=== PATIENT | female | born 1935 | race Caucasian/White ===

== ENCOUNTER 2016-04-06 20:09 | Inpatient (IN) | payer MEDICARE, OTHER ==
[~2016-04-06] VITALS: Ht 160 cm; Wt 88.4 kg
[~2016-04-06 20:09] MED LIST: ASPI-479 PO; CIPR-226 PO; DOXE10CA PO; IBUP200C PO; INSU100C7 SQ; INSU100I23 SQ; LCT30U PO; METO25TA60 PO; MTC5T; NITR100C PO; NITR100C3 PO; OMEP20CA12 PO; ONDAN4ODT PO; OXYB15TA4 PO; RANI300C PO; SIMV40TA PO; TOLT4CAP13 PO; TRAM-25 PO; TRM50T PO; [UNRECOGNIZED DRUG - OTHER]
--- OUTSIDE RECORDS SUMMARY | 2016-04-06 20:14 | XMS REPORT | Continuity of Care Document ---
Author Author [facility] Organization [facility] Address Unknown Phone Unavailable Care Team Providers Care Lay Out Former Name Role Phone Kahlil Oseguera MD PCP [phone] Insurance Providers Payer Name Policy Number Subscriber Name Relationship Medicare A And B [id number] Sathya Pascalia A 18 Self / Same As Patient Other1 [id number] Sathya Pascalia A 18 Self / Same As Patient Chief Complaint and Reason for Visit Chief Complaint Pain Reason for Visit Leg pain, left Foot pain, right Problems Medical Problems Problem Onset Date Status Nausea 02/19/2012 Active Gastroenteritis 02/22/2012 Active Chest pain 02/03/2013 Active Injury of finger Unknown Active Leg pain, left ~10/11/2014 Active Foot pain, right ~10/11/2014 Active Medications Medication Dose Route Sig Days/Qty Instructions Order Date Discontinued Date Status Nitrofurantoin Macrocrystal 100 Mg ORAL TWICE A DAY 02/19/12 Discontinued Simvastatin 40 Mg ORAL BEDTIME 02/19/12 10/11/14 Discontinued Doxepin Hcl 10 Mg ORAL TWICE A DAY 02/19/12 02/24/12 Discontinued Metoclopramide Hcl DAILY 02/19/12 02/24/12 Discontinued Omeprazole 20 Mg ORAL TWICE DAILY BEFORE MEALS 02/19/12 10/11/14 Discontinued Aspirin 81 Mg ORAL DAILY 02/19/12 Active Oxybutynin Chloride 15 Mg ORAL DAILY 02/19/12 02/04/13 Discontinued Ondansetron Hcl 4 Mg ORAL EVERY 8HRS PRN 9 Qty 02/19/12 02/24/12 Discontinued Ondansetron Hcl 4 Mg ORAL EVERY 8HRS PRN 02/24/12 10/11/14 Discontinued Lactulose 15 Ml ORAL TWICE A DAY PRN 02/24/12 10/11/14 Discontinued Insulin Lispro 12 Unit SQ DAILY@0800 02/24/12 Active Insulin Lispro 10 Unit SQ DAILY@1200 02/24/12 Active Insulin Glargine,Hum.rec.anlog 24 Unit SQ BEDTIME 02/24/12 Active Insulin Lispro 1 Dose SQ NEEDED 02/24/12 Active Ciprofloxacin Hcl 250 Mg ORAL TWICE A DAY 2 Days 02/04/13 10/11/14 Discontinued Insulin Lispro 12 Unit SQ DAILY@1800 02/04/13 Active Tramadol Hcl 50 Mg ORAL EVERY 8HRS 20 Qty 06/05/13 10/11/14 Discontinued Metoprolol Tartrate 25 Mg ORAL DAILY 10/11/14 Active Ranitidine Hcl 300 Mg ORAL DAILY 10/11/14 Active Tolterodine Tartrate 4 Mg ORAL DAILY 10/11/14 Active [ginko bilboa] DAILY 10/11/14 Active Ibuprofen 200 Mg ORAL DAILY 10/11/14 Active Ibuprofen 200 Mg ORAL NEEDED 10/11/14 Active Social History No social history. Hospital Discharge Instructions No hospital discharge instructions. Plan of Care Discharge Date 10/11/14 5:30am Disposition 01 HOME OR SELF-CARE Condition at Discharge Stable Instructions/Education Provided Peripheral Neuropathy (ED) Prescriptions See Medications Section Referrals Kahlil Oseguera MD Additional Instructions/Education Hydrocodone 5's as previously Rx'd, as needed for severe pain. Advance activity as tolerated. Follow up with PCP this next week. Some of your test results may not be complete prior to your leaving the Emergency Department. The Emergency Department is not authorized to give test results over the phone. Please contact the doctor's office listed in this packet of information for your final results. Follow up with your primary care physician or return to the Emergency Department for worsening or worrisome symptoms. * Emergency Department phone number: [phone], x [phone]* MEDICAL RECORD If you need copies of your X-rays, call [phone]. If you need copies of your medical record, including lab results, a signed authorization for release of records will be required. A telephone call for release of Health Information is not allowed. BILLING Billing can sometimes be confusing and frustrating. To help avoid confusion in the future, please take a moment to acquaint yourself with the billing parties for services. SERVICE BILLING LIBERTARIAN Emergency Room Services [facility] Physician Services [facility] X-rays [place] [facility] Patients will receive bills for services from the appropriate provider. If you have any questions about your [facility] bill, our staff will be happy to assist you. Please call [phone], and ask for the billing department. THANK YOU for choosing [facility] as your emergency care provider! Functional Status No functional status results. Allergies, Adverse Reactions, Alerts Allergen Type Severity Reaction Status Last Updated Opioids - Morphine Analogues Allergy Unknown Active 10/11/14 Penicillin Allergy Unknown Active 10/11/14 Macrolide Antibiotics Allergy Unknown Active 10/11/14 Sulfa (Sulfonamide Antibiotics) Allergy Unknown Active 10/11/14 Codeine Allergy Unknown Active 10/11/14 Erythromycin base Allergy Unknown Active 10/11/14 Immunizations No immunization records. Vital Signs Acute Vital Signs Vital Response Date/Time Temperature (Fahrenheit) 97.2 Pulse 66 bpm Respirations 20 Height 5 ft 3 in Weight 200 lb Body Mass Index 35.0 kg/m^2 Results Test Source Date Result Interp. Ref. Range Comments Activated Partial Thromboplast Time February 03, 2013 1:10pm 22.4 SEC L 25.0-39.0 Alanine Aminotransferase (ALT/SGPT) April 02, 2014 2:55pm 21 U/L L 30 -65 Albumin April 02, 2014 2:55pm 3.8 G/DL N 3.4-5.0 Albumin/Globulin Ratio April 02, 2014 2:55pm 1.225 N 1.1-1.8 Alkaline Phosphatase April 02, 2014 2:55pm 48 U/L N 38-126 Amylase Level February 22, 2012 11:02am < 30 U/L 25-115 Collected by nurse? N Anion Gap April 02, 2014 2:55pm 15.6 MEQ/L H 3-15 Aspartate Amino Transf (AST/SGOT) April 02, 2014 2:55pm 19 U/L N 15- 37 BUN/Creatinine Ratio April 02, 2014 2:55pm 32 H 10-20 Basophils # (Auto) February 03, 2013 1:10pm 0.2 10^3/uL Basophils (%) (Auto) February 03, 2013 1:10pm 2 % N 0-2 Blood Urea Nitrogen April 02, 2014 2:55pm 21 MG/DL H 7-18 Calcium Level April 02, 2014 2:55pm 10.0 MG/DL N 8.8-10.8 Calcium/Ionized Calcium Ratio April 02, 2014 2:55pm 4.5 mg/dL N 3.8- 4.6 Calculated Osmolality April 02, 2014 2:55pm 279 MOSM/L L 280-300 Carbon Dioxide Level April 02, 2014 2:55pm 26 MMOL/L N 22-29 Chloride Level April 02, 2014 2:55pm 104 mmol/L N 98-108 Cholesterol Level April 02, 2014 2:55pm 260 mg/dL H 50-200 Cholesterol Risk Factor April 02, 2014 2:55pm 4.9 N 0.0-5.0 Creatine Kinase MB February 03, 2013 1:10pm 0.3 NG/ML N 0.0-6.0 Creatinine April 02, 2014 2:55pm 0.66 mg/dL N 0.6-1.2 Eosinophils # (Auto) February 03, 2013 1:10pm 0.4 10^3/uL Eosinophils (%) (Auto) February 03, 2013 1:10pm 4 % N 0-4 Estimat Glomerular Filtration Rate April 02, 2014 2:55pm 104.8 Estimated GFR (Non- April 02, 2014 2:55pm 86.6 Glucose Level April 02, 2014 2:55pm 176 mg/dL DH 70-110 HDL Cholesterol April 02, 2014 2:55pm 53 mg/dL N 40-60 HDL Triglycerides April 02, 2014 2:55pm 310 mg/dL H 10-150 Hematocrit April 02, 2014 2:55pm 44.90 % N 35.00-45.00 Hemoglobin April 02, 2014 2:55pm 15.3 g/dL N 12.0-15.5 Hemoglobin A1c April 02, 2014 2:55pm 9.5 % H 4.0-6.0 LDL Cholesterol (Measured) April 02, 2014 2:55pm 145 mg/dL H 50-130 Lipase February 22, 2012 11:02am 23 U/L N 23-300 Collected by nurse? N Lymphocytes # (Auto) February 03, 2013 1:10pm 3.7 X 10^3 Lymphocytes (%) (Auto) February 03, 2013 1:10pm 36 % N 20-46 Magnesium Level February 03, 2013 1:10pm 2.0 MG/DL N 1.6-2.3 Mean Corpuscular Hemoglobin April 02, 2014 2:55pm 31.4 PG N 26.0- 34.0 Mean Corpuscular Hemoglobin Concent April 02, 2014 2:55pm 34.1 g/dL N 31.0-37.0 Mean Corpuscular Volume April 02, 2014 2:55pm 92 FL N 80-100 Mean Platelet Volume April 02, 2014 2:55pm 12.0 FL H 6.0-9.5 Monocytes # (Auto) February 03, 2013 1:10pm 1.0 X 10^3 Monocytes (%) (Auto) February 03, 2013 1:10pm 9 % N 3-11 Neutrophils # (Auto) February 03, 2013 1:10pm 5.1 X 10^3 Neutrophils (%) (Auto) February 03, 2013 1:10pm 49 % L 51-67 Platelet Count April 02, 2014 2:55pm 241 10^3uL N 150-450 Potassium Level April 02, 2014 2:55pm 4.6 mmol/L N 3.5-5.1 Prothromb Time International Ratio February 03, 2013 1:10pm 0.8 N 0.8- 1.4 Prothrombin Time February 03, 2013 1:10pm 11.8 SEC L 12.3-14.4 Red Blood Count April 02, 2014 2:55pm 4.87 10^6uL N 4.00-5.00 Red Cell Distribution Width April 02, 2014 2:55pm 14.2 % N 11.8-15.6 Sodium Level April 02, 2014 2:55pm 140 MMOL/L N 135-150 Thyroid Stimulating Hormone (TSH) April 02, 2014 2:55pm 2.69 UIU/ML DN 0.46-4.68 Total Bilirubin April 02, 2014 2:55pm 0.2 MG/DL N 0.1-1.0 Total Creatine Kinase February 03, 2013 1:10pm 62 U/L DN 30-135 Total Protein April 02, 2014 2:55pm 6.9 G/DL N 6.4-8.5 Troponin I February 04, 2013 6:00am < 0.012 ng/mL 0.010-0.080 Collected by nurse? N Urine Bacteria February 03, 2013 2:10pm 3+ /HPF H Urine collection method Clean Catch Urine Bilirubin April 02, 2014 2:55pm Negative Negative Urine Blood April 02, 2014 2:55pm Negative Negative Urine Clarity April 02, 2014 2:55pm Slightly cloudy Urine Collection Type April 02, 2014 2:55pm Clean catch Urine Color April 02, 2014 2:55pm Yellow Urine Glucose (UA) April 02, 2014 2:55pm Negative Negative Urine Ketones April 02, 2014 2:55pm Negative Negative Urine Leukocyte Esterase April 02, 2014 2:55pm Negative Negative Urine Mucus February 22, 2012 1:00pm 1+ Collected by nurse? N Urine Nitrite April 02, 2014 2:55pm Negative Negative Urine Protein April 02, 2014 2:55pm Negative Negative Urine RBC February 03, 2013 2:10pm 2-5 /HPF Urine collection method Clean Catch Urine RBC (Auto) November 29, 2011 11:51am Trace-intact H Negative Urine Specific [place] April 02, 2014 2:55pm 1.025 1.005-1.030 Urine Squamous Epithelial Cells February 03, 2013 2:10pm 10-20 /LPF Urine collection method Clean Catch Urine Urobilinogen April 02, 2014 2:55pm 0.2 mg/dL 0.2-1.0 Urine WBC February 03, 2013 2:10pm 50-100 /HPF Urine collection method Clean Catch Urine pH April 02, 2014 2:55pm 5.5 5.0 - 8.0 VLDL Cholesterol April 02, 2014 2:55pm 62 mg/dL H 4.00-40.00 Volume Urine Centrifuged February 03, 2013 2:10pm 10 ml Urine collection method Clean Catch White Blood Count April 02, 2014 2:55pm 12.51 10^3uL H 4.0-11.0 Blood Culture Peripheral-:Lab Indicates After [place] February 22, 2012 11: 10am No Growth in 5 days Urine Culture Urine-Clean Catch February 03, 2013 2:10pm Procedures No known history of procedures. Encounters Encounter Location Date/Time Departed Emergency Room [facility] 10/11/14 4:37am Registered Clinic [facility] 10/11/14 4:30am Recent Diagnosis
--- OUTSIDE RECORDS SUMMARY | 2016-04-06 20:14 | XMS REPORT | Continuity of Care Document ---
Author Author [facility] Organization [facility] Address Unknown Phone Unavailable Care Team Providers Care Sales Teacher Name Role Phone Kahlil Oseguera MD PCP [phone] Insurance Providers Payer Name Policy Number Subscriber Name Relationship Medicare A And B [id number] Sathya Pascalia A 18 Self / Same As Patient Other1 [id number] Sathya Pascalia A 19 Self / Same [...] worrisome symptoms. * Emergency Department phone number: [phone], x [phone]* MEDICAL RECORD If you need copies of your X-rays, call [phone] x [phone]. If you need copies of [...] the billing parties for services. SERVICE BILLING DEMOCRAT Emergency Room Services [facility] Physician Services [facility] X-rays [facility] Patients will receive bills for services from the appropriate provider. If you have any questions about your [facility] bill, our staff will be happy to assist you. Please call [phone], and ask for the billing department. THANK YOU for choosing [facility] as your emergency care provider! Functional Status [...] 2011 11:51am Trace-intact H Negative Urine Specific [place] April 02, 2014 2:55pm 1.025 1.005-1.030 Urine [...] Encounters Encounter Location Date/Time Departed Emergency Room [facility] 10/11/14 4:37am Registered Clinic [facility] 10/11/14 4:30am Recent Diagnosis
[2016-04-06] MEDS ORDERED: SODIUM CHLORIDE FLUSH 10 ML SYR IV PRN (20:15)
[2016-04-06] MEDS ORDERED: SODIUM CHLORIDE FLUSH 3 ML SYR IV PRN (20:15)
[2016-04-06] MEDS ORDERED: SODIUM CHLORIDE 250 ML IV PRN (20:15)
[2016-04-06 20:39] LABS: BASOPHILS % (AUTO) 0 % (0-2); EOSINOPHILS # (AUTO) 0.2 10^3uL; EOSINOPHILS % (AUTO) 2 % (0-4); LYMPHOCYTES # (AUTO) 3.2 X10^3; MEAN CORPUSCULAR HGB CONC 34.3 g/dL (31.0-37.0); MEAN CORPUSCULAR VOLUME 91 FL (80-100); MEAN PLATELET VOLUME 11.8 FL (6.0-9.5); MONOCYTES # (AUTO) 1.3 X10^3; MONOCYTES % (AUTO) 11 % (3-11); NEUTROPHILS # (AUTO) 6.8 X10^3; NEUTROPHILS % (AUTO) 59 % (51-67); PLATELET COUNT 295 10^3uL (150-450); WHITE BLOOD COUNT 11.55 10^3uL (4.0-11.0)
[2016-04-06 20:41] LABS: MEAN CORPUSCULAR HEMOGLOBIN 31.3 PG (26.0-34.0)
[2016-04-06 20:51] LABS: ALBUMIN 3.8 g/dL (3.4-5.0); ALKALINE PHOSPHATASE 66 U/L (38-126); ANION GAP 14.8 MEQ/L (3-15); BUN/CREATININE RATIO 22 (10-20); CALCULATED IONIZED CALCIUM 4.2 mg/dL (3.8-4.6); LIPASE* 22 U/L (23-300); MAGNESIUM* 2.1 mg/dL (1.6-2.3); TOTAL PROTEIN 6.9 g/dL (6.4-8.5)
[2016-04-06 20:56] LABS: CREATINE KINASE < 20 U/L (30-135)
[2016-04-06] MEDS ORDERED: INSULIN REGULAR 1 UNIT/0.01 ML DOSE IV ONE (21:00)
[2016-04-06 22:28] LABS: BILIRUBIN,URINE Negative (Negative); CLARITY,URINE Cloudy; COLOR,URINE Yellow; GLUCOSE, URINE (UA) 3+ (Negative); LEUKOCYTE ESTERASE ,URINE Trace (Negative); PH,URINE 6.5 (5.0 - 8.0); UROBILINOGEN,URINE 0.2 mg/dL (0.2-1.0)
[2016-04-06 22:40] LABS: URINE CENTRIFUGED VOLUME 12 mL
[2016-04-06] MEDS ORDERED: LEVOFLOXACIN 500 MG/100 ML IV 100 ML IV ONE ×2 (23:05→23:39)
[2016-04-06] MEDS ORDERED: DEXTROSE ORAL GEL (GLUTOSE 40%) 15 GM TUBE PO PRN (23:55)
[2016-04-06] MEDS ORDERED: BISACODYL 10 MG SUPP (DULCOLAX) PR PRN (23:55)
[2016-04-06] MEDS ORDERED: DOCUSATE SODIUM 100 MG (COLACE) CAP PO PRN (23:55)
[2016-04-06] MEDS ORDERED: ACETAMINOPHEN 325 MG TAB (TYLENOL) PO PRN (23:55)
[2016-04-06] MEDS ORDERED: LEVOFLOXACIN 500 MG/100 ML IV 100 ML IV SCH (23:55)
[2016-04-06] MEDS ORDERED: POLYETHYLENE GLYCOL 17 GM (MIRALAX) PACKET PO PRN (23:55)
[2016-04-06] MEDS ORDERED: GLUCAGON EMERGENCY 1 MG/KIT IM PRN (23:55)
[2016-04-06] MEDS ORDERED: morphine INJ 4 MG/ML 1 ML SYRINGE IV PRN (23:55)
[2016-04-06] MEDS ORDERED: DEXTROSE 50% 25 GM/50 ML SYRINGE IV PRN (23:55)
[2016-04-06] MEDS ORDERED: ONDANSETRON 2 MG/ML (Z0FRAN) 2 ML VIAL IV PRN (23:55)
--- NOTE | 2016-04-07 00:10 | NUR ---
Pt admitted to 303 at this time via cart accompanied by ER nurse. Skin warm, dry, intact. Resps nonlabored with a rate of 20. Pt denies pain, dizziness, lightheadedness. Levaquin infusing to 20g in R hand. See admission database for assessment info.
[2016-04-07 00:54] VITALS: BP 160/66
[2016-04-07 00:59] VITALS: BP 160/66
--- NOTE | 2016-04-07 05:07 | NUR ---
Pt reports that she has been unable to sleep during the night. Told pt I would have the day shift nurse request something to help her sleep for tonight. Pt Verbalizes understanding, call light in reach, will continue to monitor.
[2016-04-07] MEDS: PANTOPRAZOLE 40 MG (PROTONIX) TAB PO SCH (05:53)
[2016-04-07 06:44] LABS: MEAN CORPUSCULAR HGB CONC 33.4 g/dL (31.0-37.0); MEAN CORPUSCULAR VOLUME 95 FL (80-100); MEAN PLATELET VOLUME 11.9 FL (6.0-9.5); PLATELET COUNT 275 10^3uL (150-450); WHITE BLOOD COUNT 10.01 10^3uL (4.0-11.0)
[2016-04-07 06:50] LABS: MEAN CORPUSCULAR HEMOGLOBIN 31.7 PG (26.0-34.0)
[2016-04-07 07:09] LABS: ALBUMIN 2.9 g/dL (3.4-5.0); ANION GAP 13.1 MEQ/L (3-15); CALCULATED IONIZED CALCIUM 4.4 mg/dL (3.8-4.6); TOTAL PROTEIN 5.5 g/dL (6.4-8.5)
[2016-04-07 07:11] LABS: BAND NEUTROPHILS % 2 % (0-6); EOSINOPHILS % 0 % (0-4); LYMPHOCYTES # 1.6 #; MONOCYTES # 0.9 #; MONOCYTES % 9 % (3-11); RBC MORPH NORMAL (NORMAL); SEGMENTED NEUTROPHILS % 56 % (51-67); TOTAL CELLS COUNTED 100
--- NOTE | 2016-04-07 08:00 | Diagnostic Imaging Report ---
INDICATION: Weakness. EXAMINATION: Chest, 04/06/2016. Comparison made to 02/03/2013. FINDINGS: There is prominence of the right perihilar region. The heart is mildly prominent. Atelectasis is seen at the left lung base. Remaining lungs demonstrate chronic appearing changes. No pneumothorax is seen. IMPRESSION: 1. Prominence of the right hilum. CT imaging recommended to exclude lymphadenopathy. The remaining changes unremarkable as discussed above. Dictated by: Dictated on workstation # [id number]
--- NOTE | 2016-04-07 08:08 | Diagnostic Imaging Report ---
INDICATION: Weakness EXAMINATION: Pelvis 04/06/2016 COMPARISON: None FINDINGS: Frontal view of the pelvis demonstrates no evidence for fracture or dislocation although examination is limited by patient body habitus. IMPRESSION: 1. No acute abnormality, however, if there is persistent pain or patient cannot bear weight, further imaging recommended because of the given limitations as above. Dictated by: Dictated on workstation # [id number]
--- NOTE | 2016-04-07 08:30 | NUR ---
Pt sitting up in bed eating breakfast. Skin warm, dry, intact. Resprs nonlabored, even on RA. NS @ 100 mL/hr infusing with no difficulty. Denies needs. Call light within reach.
[2016-04-07] MEDS ORDERED: NS FLUSH 10 ML PRN IV (08:40)
[2016-04-07] MEDS ORDERED: NS FLUSH 3 ML PRN IV (08:40)
--- NOTE | 2016-04-07 08:57 | HISTORY AND PHYSICAL ---
HISTORY CHIEF COMPLAINT: Weakness, fall at home HISTORY OF PRESENT ILLNESS: This patient is an 81-year-old female patient who has not been feeling like herself since about Germaine. She reported today that she became very weak and was having some lower abdominal pain and dysuria. She was suspicious that she maybe had a UTI. She became gradually weaker throughout the day and sustained a fall, which necessitated her being brought to the hospital by EMS. She denies any fevers, chills, back pain, hematuria, shortness of breath, or cough. She has not been on any antibiotics at home. She is a diabetic and does take insulin and her blood sugars have been very out of control. PAST MEDICAL HISTORY: 1. Diabetes mellitus type 2, insulin requiring. 2. Hypertension. 3. Hyperlipidemia. 4. Parotitis. 5. Benign essential tremor. 6. Chronic low back pain. 7. Coronary artery disease of false pass coronary arteries. 8. Eczema. 9. Esophageal spasm. 10. History of gastroparesis. 11. Obesity. 12. Osteoarthritis of the spine. 13. She has also had a history of breast cancer. PAST SURGICAL HISTORY: 1. Laparoscopic cholecystectomy in 2008. 2. Hysterectomy with BSO in the past. 3. Left mastectomy for breast cancer. 4. 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 This was apparently a benign etiology. ALLERGIES: 1. Penicillin. 2. Sulfa. 3. Codeine. 4. Erythromycin. CURRENT MEDICATIONS: 1. Aspirin 81 mg daily. 2. Motrin 200 mg p.o. as needed. 3. Glargine insulin 28 units at bedtime. 4. Insulin Lispro 15 units subcu daily at 0800 and 18 units subcu at 1200, and 22 units subcu at 1800 hours. 5. Metoprolol tartrate 25 mg daily. 6. Detrol 4 mg daily. 7. [place] biloba daily. REVIEW OF SYSTEMS: GENERAL: She has not had any recent fevers, chills or sweats. She has not had any recent weight gain or weight loss. HEENT: She has not had any headaches, blurred or double vision, sore throat or rhinorrhea. RESPIRATORY: No cough, no wheezing, or no shortness of breath. CARDIOVASCULAR: No chest pain or palpitations. No syncope or near syncope. GASTROINTESTINAL: As per the HPI. SKIN: No easy bruising. She does have chronic eczema. NEUROLOGIC: No weakness, numbness or slurring of speech. No disorientation or confusion. All other pertinent review of systems as per the HPI are negative. PHYSICAL EXAM VITAL SIGNS: Temperature is 99.5, pulse is 86, respirations 16. Sats are 94% on room air. Blood pressure 137/61. GENERAL: This is a very pleasant 81-year-old female who is in no acute distress. She is alert and oriented to person, time, and place and cooperative with the exam. HEENT: Head is normocephalic. Eyes are anicteric. Pupils are 3 mm, round and reactive to light. Her extra ocular muscles are full. Oropharynx is clear. Mucous membranes are dry. Neck is supple. There is no adenopathy. NEUROLOGIC: Shows cranial nerves 2-12 to be intact as tested. Strength is 5/5 and equal in bilateral upper and lower extremities. Sensation is intact in bilateral upper and lower extremities. RESPIRATORY: Her breath sounds are clear and equal bilaterally. There are no rales or rhonchi. CV: Heart has a regular rate and rhythm with a grade 2/6 systolic murmur best heard at right upper sternal border. ABDOMEN: Soft. There is suprapubic tenderness on palpation, but no guarding and no rebound. Bowel sounds are normoactive. EXTREMITIES: Exhibit no cyanosis, clubbing, or edema. LABORATORY: White blood cell count is slightly elevated at 11.5, hemoglobin is 15.1, hematocrit is 44.0, platelets 295. Sodium is 135, potassium 4.5, chloride is 102, CO2 is 22, BUN is 17, creatinine is 0.76. Glucose is elevated at 444. Cardiac enzymes are all normal. CRP is elevated at 4.5. B-type natriuretic peptides are normal at 90. Lipase is 22. Liver enzymes are within normal limits. Urine analysis shows 3+ glucose, 1+ ketones, positive nitrites, 2+ red blood cells, 5 to 10 red blood cells per high-powered field and too numerous to count white blood cells per high-powered field. Coags are normal. Serum alcohol is normal. ASSESSMENT: 1. Urinary tract infection. 2. Dehydration. 3. Abnormality of gait. 4. Obesity. 5. Fall at home. 6. Coronary artery disease. 7. Diabetes mellitus type 2, uncontrolled. 8. Hypertension. 9. Hyperlipidemia. 10. History of breast cancer. 11. Eczema. PLAN: 1. The patient is going to be admitted and given IV fluids. The fluids that she has already been given have helped her considerably. This will also help to bring her blood sugar down. 2. She will be started empirically on Levaquin pending cultures. Blood cultures have been done in the emergency department. 3. We will give her medicine for constipation and/or nausea, as well as pain as needed. 4. DVT prophylaxis with Lovenox will be initiated, as well as SCDs. 5. We will start her on a proton pump inhibitor for stress prophylaxis. 6. I am going to adjust her insulin somewhat and see how she does, if she is still quite high. Please note the patient indicates to me that she is a do not resuscitate. This was reflected previously in her chart and we will continue this.
[2016-04-07] MEDS: NS FLUSH 3 ML DAILY IV SCH (09:00)
[2016-04-07] MEDS ORDERED: ENOXAPARIN 40 MG/0.4 ML (LOVENOX) SYR SC SCH (09:00)
[2016-04-07] MEDS ORDERED: ASPIRIN 81 MG PO SCH (09:00)
--- NOTE | 2016-04-07 09:31 | Progress Note (E) ---
Progress Note SUBJECTIVE Assumed care at 0700. H&P still not transcribed. In summary, brought to ED by EMS after fall. She was worried about bladder infection. [place] dizzy with fall. WBC was 11.55 with no bands. Glucose was quite high at 444 and she was given regular insulin in ED. CRP was 4.40. Troponin normal. Urine was suggestive of dehydration and UTI. In ED she was given levofloxacin, NS bolus. Since admit she has been afebrile. Other vitals stable and she remains on room air. Reportedly did not sleep well last night. Otherwise no major issues. WBC this AM lower but 56% N and 2% bands. Chemistry stable. Glucose improved. Noted A1C is 11.2. Follow-up CXR this AM shows right perihilar density. Radiologist interp still pending. OBJECTIVE Vital Signs Date Time Temp Pulse Resp B/P Pulse Ox O2 Delivery O2 Flow Rate FiO2 04/07/16 00:59 98.5 72 20 91 Room air 04/07/16 00:54 160/66 I & O 04/06/16 04/07/16 Cumulative From/Thru 18:59 06:59 04/07/16 00:51 - 04/07/16 06:07 Intake Total 1005 ml 1005 ml Balance 1005 ml 1005 ml GEN: Resting in bed. Tired appearing but oriented. HEENT: EOMI, clear sclerae, dry oral mucosa still. CV: Regular without murmur. PULM: CTA B with good air movement. No R/R/W. ABD: Obese, soft, non-tender. Normal bowel sounds. Tolerates exam well. EXTR: 1+ BLE edema. INTEG: Age related changes. Pallor. No rash. NEURO: No focal motor neuro deficit. Lab-Past 14 Days, 35 Results 04/06/16 20:30: Activated Partial Thromboplast Time 29.8, Alanine Aminotransferase (ALT/SGPT) 31 , Albumin 3.8, Albumin/Globulin Ratio 1.225, Alkaline Phosphatase 66, Anion Gap 14.8, Aspartate Amino Transf (AST/SGOT) 14L, BUN/Creatinine Ratio 22H, Basophils # (Auto) 0.1, Basophils (%) (Auto) 0, Blood Urea Nitrogen 17, C- Reactive Protein 4.40H, Calcium Level 9.4, Calcium/Ionized Calcium Ratio 4.2, Calculated Osmolality 282, Carbon Dioxide Level 22, Chloride Level 102, Creatine Kinase MB < 0.3, Creatinine 0.76, Eosinophils # (Auto) 0.2, Eosinophils (%) (Auto) 2, Estimat Glomerular Filtration Rate 88.6, Estimated GFR (Non- 73.2, Glucose Level 444#*H, Hematocrit 44.00, Hemoglobin 15.1, Lipase 22L, Lymphocytes # (Auto) 3.2, Lymphocytes (%) (Auto) 28 , Magnesium Level 2.1, Mean Corpuscular Hemoglobin 31.3, Mean Corpuscular Hemoglobin Concent 34.3, Mean Corpuscular Volume 91, Mean Platelet Volume 11.8H , Monocytes # (Auto) 1.3, Monocytes (%) (Auto) 11, CT-Fpb-U-Type Natriuretic Peptide 90, Neutrophils # (Auto) 6.8, Neutrophils (%) (Auto) 59, Platelet Count 295, Potassium Level 4.5, Prothromb Time International Ratio 1.0, Prothrombin Time 11.6, Red Blood Count 4.82, Red Cell Distribution Width 14.1, Serum Alcohol < 10.0L, Sodium Level 135, Total Bilirubin 0.6, Total Creatine Kinase < 20#L, Total Protein 6.9, Troponin I < 0.012, White Blood Count 11.55H 04/06/16 22:10: Urine Bacteria 2+H, Urine Bilirubin Negative, Urine Clarity Cloudy, Urine Collection Type Random voided, Urine Color Yellow, Urine Glucose (UA) 3+H, Urine Ketones 1+H, Urine Leukocyte Esterase TraceH, Urine Nitrite PositiveH, Urine Protein TraceH, Urine RBC 5-10H, Urine RBC (Auto) 2+H, Urine Specific [place] 1.020, Urine Squamous Epithelial Cells None, Urine Urobilinogen 0.2, Urine WBC TntcH, Urine pH 6.5, Volume Urine Centrifuged 12 ml 04/06/16 23:54: Thyroid Stimulating Hormone (TSH) 1.82# 04/07/16 06:10: Alanine Aminotransferase (ALT/SGPT) 26L, Albumin 2.9#L, Albumin/Globulin Ratio 1.115, Alkaline Phosphatase 53, Anion Gap 13.1, Aspartate Amino Transf (AST/SGOT ) 8L, BUN/Creatinine Ratio 18, Blood Urea Nitrogen 14, Calcium Level 8.8, Calcium/Ionized Calcium Ratio 4.4, Calculated Osmolality 276L, Carbon Dioxide Level 22, Chloride Level 107, Creatinine 0.78, Estimat Glomerular Filtration Rate 86.0, Estimated GFR (Non- 71.1, Glucose Level 282#H, Hematocrit 41.00, Hemoglobin 13.7, Mean Corpuscular Hemoglobin 31.7, Mean Corpuscular Hemoglobin Concent 33.4, Mean Corpuscular Volume 95, Mean Platelet Volume 11.9H, Platelet Count 275, Potassium Level 4.4, Red Blood Count 4.32, Red Cell Distribution Width 14.3, Sodium Level 137, Total Bilirubin 0.6, Total Protein 5.5L, White Blood Count 10.01, Absolute Band Neutrophils 0.2, Atypical Lymphocytes 17, Band Neutrophils % 2, Basophils # (Manual) 0.0, Basophils % ( Manual) 0, Blood Morphology Comment Normal, Differential Total Cells Counted 100 , Eosinophils # 0.0, Eosinophils % (Manual) 0, Hemoglobin A1c 11.2H, Lymphocytes # 1.6, Lymphocytes % (Manual) 16L, Metamyelocytes % 0, Monocytes # 0.9, Monocytes % (Manual) 9, Neutrophils # 5.6, Segmented Neutrophils % 56 MICRO 04/06 Blood culture PENDING 04/06 Urine culture PENDING IMAGING 04/07/16 CXR: PENDING 04/06/16 PELVIS INDICATION: Weakness EXAMINATION: Pelvis 04/06/2016 COMPARISON: None FINDINGS: Frontal view of the pelvis demonstrates no evidence for fracture or dislocation although examination is limited by patient body habitus. IMPRESSION: 1. No acute abnormality, however, if there is persistent pain or patient cannot bear weight, further imaging recommended because of the given limitations as above. 04/06/16 CHEST 1 VIEW, AP/PA ONLY* INDICATION: Weakness. EXAMINATION: Chest, . Comparison made to 02/03/2013. FINDINGS: There is prominence of the right perihilar region. The heart is mildly prominent. Atelectasis is seen at the left lung base. Remaining lungs demonstrate chronic appearing changes. No pneumothorax is seen. IMPRESSION: 1. Prominence of the right hilum. CT imaging recommended to exclude lymphadenopathy. The remaining changes unremarkable as discussed above. ASSESSMENT Xuan Pascal is a 81 year old female admitted from ED 04/07 with falls at home. She was found to have complicated UTI and hyperglycemia with uncontrolled diabetes mellitus type II. She was also found to have right perihilar density of uncertain significance. PLAN * Falls at home: PT eval and treat. * Complicated UTI: Did not meet sepsis criteria on admit. Culture pending. Empiric levofloxacin. * Dehydration: NS bolus on admit. I&O, daily weight. * Diabetes Mellitus Type II, Uncontrolled: Quite hyperglycemic on admit. A1C 11.2. Responded well to insulin. Suspect non-adherence. Basal bolus regimen with sliding scale. Monitor glucose trend. * Right Perihilar Mass: Prominence of right hilum noted on 2-view image. Further characterize with CT chest. * F/E/N: Diabetic diet. IVF. Peripheral IV. IVF. * Prophylaxis: Enoxaparin * Code Status: DNR * Dispo: Observation pending utilization review. CHRONIC ISSUES Home medications pending further review: * HTN: Metoprolol GERARDO BRODY MD Apr 07, 2016 09:31
--- NOTE | 2016-04-07 10:00 | NUR ---
Pt to CT at this time.
[2016-04-07] MEDS: INSULIN LISPRO 1 UNIT/0.01 ML (HUMALOG) DOSE SC SCH ×6 (10:36→21:42)
[2016-04-07] MEDS ORDERED: INSU100I14 SQ ×3 (10:44)
[2016-04-07] MEDS ORDERED: MTP50T PO (10:44)
[2016-04-07] MEDS ORDERED: SIMV40TA2 PO (10:47)
--- NOTE | 2016-04-07 11:00 | NUR ---
Sohail mosley brought pt back up from CT stating that her IV blew and upon failed attempt to restart, pt insisted that they not try again. Pt brought back up to floor until new IV can be established, then will reattempt CT.
[2016-04-07] MEDS: ASPIRIN 81 MG CHEW (CHILDREN'S ASA) PO SCH (11:27)
[2016-04-07] MEDS: meTOprolol TARTRATE 25 MG (LOPRESSOR) TABLET PO SCH (11:27)
--- NOTE | 2016-04-07 11:45 | Diagnostic Imaging Report ---
INDICATION: Right hilar fullness. EXAMINATION: Two-view chest dated 04/07/2016. COMPARISON: Previous portable chest from 04/06/2016. FINDINGS: There is persistent prominence of the right perihilar region and lymphadenopathy with an adjacent small lung nodule not excluded. CT imaging recommended. The remaining lungs demonstrate minimal left base atelectasis. There are no effusions. Heart is unremarkable. Metallic device overlies the right upper quadrant. There are rounded densities superimposed upon the lower thoracic spine, likely stool in the adjacent colon, less likely lesions in the adjacent lung, but again CT imaging would be recommended. IMPRESSION: 1. Abnormal findings in the right perihilar region and questionably overlying the thoracic spine distally. See above discussion. CT imaging recommended. Dictated by: Dictated on workstation # [id number]
[2016-04-07] MEDS ORDERED: LMX 4 KIT (LIDOCAINE 4% 5 GM TUBE/TRANSPARENT DRESSING) TOP SCH (12:17)
--- NOTE | 2016-04-07 13:30 | NUR ---
Lidocaine transdermal applied, let medication sit for approx 30 mins and IV attempted in R FA by this nurse with no success. Pt shouts at this nurse, "So you didn't get it, huh? Do you just expect me to take all this pain?". T Valerie notified, will have another RN attempt IV start.
[2016-04-07] MEDS ORDERED: LIDOCAINE PF 1% (XYLOCAINE) 2 ML VIAL INJ SCH (13:55)
--- NOTE | 2016-04-07 15:10 | NUR ---
IV 20G started in LAC X1 attempt c aseptic technique
--- NOTE | 2016-04-07 15:17 | NUR ---
MULTIDISCIPLINARY MTG/DR. BRODY: Pt. admitted from the ER due to falls at home. Pt. being treated with Levofloxacin for a complicated UTI. Pt is receiving fluids for dehydration and Pt. diabetes is improving. Pt. will have a chest CT. No discharge needs identified at this time.
--- NOTE | 2016-04-07 15:20 | NUR ---
Pt down to CT at this time.
--- NOTE | 2016-04-07 15:54 | Physical Therapy Evaluation(E) ---
Plan of Care STG: Plan-Treatment Functional: Trans. Safe w/ AD STG Time Frame: 2 Days LTG Time Frame: 5 Days Goals Discussed/Agreed: Yes Plan: Functional Strengthening, Gait & Transfer Training, Neuro Re-Education, Transfer Training, Therapy Excercise Discharge Recommendations: TCU/Skilled NH (The patient did report having some difficulty entering her home prior to hospitalization and some balance difficulty therefore she would benefit from additional therapy services. She did not like home health services per her report. ) Aware of Dx and Prognosis: Yes Aware of Risk & Benefit: Yes To be Seen: Daily Monday-Monday Initial Evaluation Service Date/Time 04/07/16, 12:52 Primary Diagnosis: (1) Hyperglycemia ICD Code: R73.9 (2) Urinary tract infection ICD Code: N39.0 Treatment Diagnosis: (1) Weakness of both legs ICD Code: R29.898 (2) Urinary tract infection ICD Code: N39.0 Onset Date: 04/06/2016 Start of Care Date: Apr 07, 2016 Resuscitation Status: Do Not Resuscitate Precaution/Isolation: Standard Precautions Fall Level: High Risk 51 or greater Initial Assessment Reason for Rehab: Increase Mobility, Increase Strength, Increase Balance, Increase Transfers, Increase Endurance Medical History: Other (HTn, uncontrolled DM type 2, essential tremor, hx of breast cancer, fall at home. ) Pain Location/Comment No pain complaints at this time. Pt reports she just feels weak. Prior Level of Function The patient lives at home alone with entry steps and a handrail. She notes some difficulty getting into her home. The patient has a dog. Ambulates using furniture for balance secondary to reporting not enough room for her walker. Had home health but has chosen to discontinue that. Rehabilitation Potential: Fair Distance Walked in Feet 14 feet with FWW increased trunk sway and fatigued noted following this distance. Assist: Min Assist/Contact Guard Gait Description: Wide Based Gait, Decreased [place], Slow ROM/Strength Hip Mobility: Right Hip Strength: 3+ Left Hip Strength: 3+ Knee Flexion Mobility: Right Knee Flexion Strength: 4- Left Knee Flexion Strength: 4- Knee Extension Mobility: Right Knee Extension Strength: 4 Left Knee Extension Strength: 4 Ankle Mobility: Right Ankle Strength: 4- Left Ankle Strength: 4- Assessment/Goals Initial Transfer Assessment Rolling: Supervision or setup Sit-Supine: Minimal Assistance Sitting Edge of Bed: Contact Guard Assist Supine-Sit: Minimal Assistance Sit-Stand from Bed: Minimal Assistance Stand-Sit: Contact Guard Assist Ambulation: Minimal Assistance Distance Walked in Feet 14 feet with FWW. Comment Patient scores a 15/28 on the [place]etti Balance Assessment. Transfer Short Term Goals Rolling: Supervision or setup Sit-Supine: Contact Guard Assist Sitting Edge of Bed: Supervision or setup Supine-Sit: Contact Guard Assist Sit-Stand from bed: Supervision or setup Stand-Sit: Supervision or setup Ambulation: Contact Guard Assist Distance to Walk in Feet 50 feet with FWW CGA with no standing rest breaks. Transfer Intermediate Goals Rolling: Modified [place] Sit-Supine: Modified [place] Sitting Edge of Bed: Modified [place] Supine-Sit: Modified [place] Sit-Stand from bed: Modified [place] Stand-Sit: Modified [place] Ambulation: Modified [place] Distance to Walk in Feet A minimum of 100 feet with FWW Treatments Treatments Static Balance: WBOS Ambulation Weight Bearing Status: Full Assistive Device: FWW Gait Assist: Min Assist/Contact Guard Gait Description: Decreased [place], Slow Gait Training: Limitations: Fatigue (Reported feeling of weakness. ) Patient and her daughter were educated on our treatment plan and she was agreeable to this. Coding Time In: 1208 Time Out: 1231 Total Minutes: 23 Code & Unit: 61090 Eval< 30 min, 46212 Gait Training 15 mi Rehab G Codes Current Functional Status: [id number] Current Modifier: CK 40% but <60% Projected Functional Goal: [id number] Goal Modifier: CK 40% but <60% JAMIE SWIFT PT Apr 07, 2016 12:58
--- NOTE | 2016-04-07 16:38 | Diagnostic Imaging Report ---
INDICATION: Hilar fullness. EXAMINATION: CT chest obtained with IV contrast bolus. FINDINGS: There are no enlarged mediastinal nodes. There is evidence of pulmonary emboli in the right pulmonary artery and lower lobe branches. There is no perihilar mass. There are no enlarged axillary nodes. There is no pericardial fluid but there is a trace of pleural fluid on the right side with no significant left-sided pleural fluid. Lung parenchymal windows demonstrate bibasilar atelectatic changes but no zaid consolidation or pulmonary parenchymal mass. Visualized portions of the upper abdomen are unremarkable. IMPRESSION: Evidence of right-sided pulmonary emboli. There is cardiomegaly. There is bibasilar atelectasis with a trace of pleural fluid on the right side. No overt adenopathy is seen. Report was called to Dr. Rojo at the [facility] at 4:34 p.m., by pb. Dictated by: Dictated on workstation # [id number]
--- NOTE | 2016-04-07 17:30 | NUR ---
Pt sitting up in bed, daughter at bedside. Skin warm, dry, intact. Resprs nonlabored, even on RA. IVF infusing with no difficulty. Pt denies needs. Call light within reach.
--- NOTE | 2016-04-07 17:30 | NUR ---
MED REC COMPLETE--current med list obtained from external med history application, list provided by patient's PCP (Dr. Vega), and patient interview.
[2016-04-07 17:31] VITALS: BP 140/57
[2016-04-07] MEDS: ENOXAPARIN 80 MG/0.8 ML (LOVENOX) SYR SC SCH ×2 (18:28→20:07)
[2016-04-07] MEDS: LEVOFLOXACIN 500 MG/100 ML IV 100 ML IV SCH (21:42)
[2016-04-07] MEDS: INSULIN GLARGINE 1 UNIT/0.01ML (LANTUS) DOSE SC SCH (21:42)
[2016-04-07] MEDS ORDERED: LEVOFLOXACIN 500 MG/100 ML IV 100 ML IV ONE (23:05)
[2016-04-08] VITALS: BP 131/82
[2016-04-08 06:17] LABS: MEAN CORPUSCULAR HEMOGLOBIN 31.3 PG (26.0-34.0); MEAN CORPUSCULAR VOLUME 92 FL (80-100); MEAN PLATELET VOLUME 12.7 FL (6.0-9.5); PLATELET COUNT 275 10^3uL (150-450); WHITE BLOOD COUNT 8.99 10^3uL (4.0-11.0)
[2016-04-08 06:33] LABS: BAND NEUTROPHILS % 0 % (0-6); EOSINOPHILS % 3 % (0-4); MONOCYTES # 0.2 #; MONOCYTES % 3 % (3-11); RBC MORPH NORMAL (NORMAL); SEGMENTED NEUTROPHILS % 38 % (51-67); TOTAL CELLS COUNTED 100
[2016-04-08] MEDS: PANTOPRAZOLE 40 MG (PROTONIX) TAB PO SCH (06:44)
[2016-04-08 06:57] LABS: ALBUMIN 2.6 g/dL (3.4-5.0); PHOSPHORUS 2.9 mg/dL (2.4-4.9)
--- NOTE | 2016-04-08 07:24 | NUR ---
Patient rests in bed throughout night without needs. IV saline locked per order. Reports minimal pain this AM, though states that her left great toe started hurting in the middle of the night. No needs at this time.
[2016-04-08 07:32] LABS: ANION GAP 13.7 MEQ/L (3-15)
[2016-04-08] MEDS: INSULIN LISPRO 1 UNIT/0.01 ML (HUMALOG) DOSE SC SCH ×7 (08:15→21:20)
[2016-04-08 08:22] VITALS: BP 149/72
[2016-04-08] MEDS: NS FLUSH 3 ML DAILY IV SCH (09:00)
--- NOTE | 2016-04-08 09:10 | NUR ---
Up to the bathroom with assist of one and a gait belt. Encouraged the patient to increase activity today. She consented to sit in the chair.
[2016-04-08] MEDS: meTOprolol TARTRATE 25 MG (LOPRESSOR) TABLET PO SCH (09:17)
[2016-04-08] MEDS: ASPIRIN 81 MG CHEW (CHILDREN'S ASA) PO SCH (09:17)
[2016-04-08] MEDS: ENOXAPARIN 80 MG/0.8 ML (LOVENOX) SYR SC SCH ×2 (09:19→21:19)
--- NOTE | 2016-04-08 14:50 | PT Daily Note Inpatient (E) ---
PT Daily Treatment Service Date/Time 04/08/16, 14:43 Medical Diagnosis: (1) Hyperglycemia ICD Code: R73.9 (2) Urinary tract infection ICD Code: N39.0 Physical Therapy: (1) Weakness of both legs ICD Code: R29.898 (2) Urinary tract infection ICD Code: N39.0 Precaution/Isolation: Standard Precautions Resuscitation Status: Do Not Resuscitate Fall Level: High Risk 51 or greater Subjective Patient was found to have a PE, PT did speak with nurse and physician and has been given the okay to continue to work with this patient. Patient seated in chair this afternoon and is motivated to go for a walk. The patent has neuropathy pain this date in lower extremities. Oxygen Delivery: Room air Treatments Sit, Stand, Supine: Sitting Extremity: Both Lower Extremity Repetition: 2 x 10 Exercise: AP, Other (Lower extremity nerve glides. ) Transfers Sit-Stand from bed: Contact Guard Assist Stand-Sit: Contact Guard Assist Gait Ambulation: Contact Guard Assist Distance Walked: Approximately 45 feet with FWW Weight Bearing Status: Full Gait Assist: Min Assist/Contact Guard Education/Plan Education Education Needs: Use of Devices/Equipment Assessment Patient fatigues quickly with activity but is motivated to improve her functional status. The patient declined any further activity this date. She would continue to benefit from therapy services as she is not functioning at her prior level of function. Safety Awareness: Intact Response to Treatment: Improving Plan Continue with physical therapy services, progress as patient tolerates. Patient will be seen: Daily Monday-Monday Discharge Recommendations: TCU/Skilled NH Coding Time In: 1418 Time Out: 1437 Total Minutes: 19 Codes/Units: 33190 Exercise Therp 15 m JAMIE SWIFT PT Apr 08, 2016 14:50
--- NOTE | 2016-04-08 14:57 | Progress Note (E) ---
Progress Note SUBJECTIVE New diagnosis of PE as noted below. Getting full-dose enoxaparin. Discussed anticoagulation options and she chose warfarin. Ambulated with PT. Slow gait but doing well with standby assist. Titrating insulin closer to her home doses due to higher glucose. Urine culture growing gram negative bacilli. Discussed rehab and she is agreeable to skilled either at [place] or [facility]. OBJECTIVE Vital Signs Date Time Temp Pulse Resp B/P Pulse Ox O2 Delivery O2 Flow Rate FiO2 04/08/16 08:22 97.4 62 18 149/72 94 Room air I & O 04/07/16 04/08/16 Cumulative From/Thru 18:59 06:59 04/07/16 00:51 - 04/08/16 06:00 Intake Total 1059 ml 400 ml 2464 ml Output Total 200 ml 100 ml 300 ml Balance 859 ml 300 ml 2164 ml GEN: Awake, alert, interactive, oriented, NAD at present. HEENT: EOMI, clear sclerae, mildly dry oral mucosa. CV: Regular without murmur. PULM: CTA B with good air movement. No R/R/W. ABD: Obese, soft, non-tender. Normal bowel sounds. Tolerates exam well. EXTR: 1+ BLE edema. INTEG: Age related changes. Pallor. No rash. NEURO: No focal motor neuro deficit. Lab-Past 14 Days, 35 Results 04/06/16 20:30: Activated Partial Thromboplast Time 29.8, Alanine Aminotransferase (ALT/SGPT) 31 , Albumin 3.8, Albumin/Globulin Ratio 1.225, Alkaline Phosphatase 66, Anion Gap 14.8, Aspartate Amino Transf (AST/SGOT) 14L, BUN/Creatinine Ratio 22H, Basophils # (Auto) 0.1, Basophils (%) (Auto) 0, Blood Urea Nitrogen 17, C- Reactive Protein 4.40H, Calcium Level 9.4, Calcium/Ionized Calcium Ratio 4.2, Calculated Osmolality 282, Carbon Dioxide Level 22, Chloride Level 102, Creatine Kinase MB < 0.3, Creatinine 0.76, Eosinophils # (Auto) 0.2, Eosinophils (%) (Auto) 2, Estimat Glomerular Filtration Rate 88.6, Estimated GFR (Non- 73.2, Glucose Level 444#*H, Hematocrit 44.00, Hemoglobin 15.1, Lipase 22L, Lymphocytes # (Auto) 3.2, Lymphocytes (%) (Auto) 28 , Magnesium Level 2.1, Mean Corpuscular Hemoglobin 31.3, Mean Corpuscular Hemoglobin Concent 34.3, Mean Corpuscular Volume 91, Mean Platelet Volume 11.8H , Monocytes # (Auto) 1.3, Monocytes (%) (Auto) 11, UJ-Shy-L-Type Natriuretic Peptide 90, Neutrophils # (Auto) 6.8, Neutrophils (%) (Auto) 59, Platelet Count 295, Potassium Level 4.5, Prothromb Time International Ratio 1.0, Prothrombin Time 11.6, Red Blood Count 4.82, Red Cell Distribution Width 14.1, Serum Alcohol < 10.0L, Sodium Level 135, Total Bilirubin 0.6, Total Creatine Kinase < 20#L, Total Protein 6.9, Troponin I < 0.012, White Blood Count 11.55H 04/06/16 22:10: Urine Bacteria 2+H, Urine Bilirubin Negative, Urine Clarity Cloudy, Urine Collection Type Random voided, Urine Color Yellow, Urine Glucose (UA) 3+H, Urine Ketones 1+H, Urine Leukocyte Esterase TraceH, Urine Nitrite PositiveH, Urine Protein TraceH, Urine RBC 5-10H, Urine RBC (Auto) 2+H, Urine Specific [place] 1.020, Urine Squamous Epithelial Cells None, Urine Urobilinogen 0.2, Urine WBC TntcH, Urine pH 6.5, Volume Urine Centrifuged 12 ml 04/06/16 23:54: Thyroid Stimulating Hormone (TSH) 1.82# 04/07/16 06:10: Alanine Aminotransferase (ALT/SGPT) 26L, Albumin 2.9#L, Albumin/Globulin Ratio 1.115, Alkaline Phosphatase 53, Anion Gap 13.1, Aspartate Amino Transf (AST/SGOT ) 8L, BUN/Creatinine Ratio 18, Blood Urea Nitrogen 14, Calcium Level 8.8, Calcium/Ionized Calcium Ratio 4.4, Calculated Osmolality 276L, Carbon Dioxide Level 22, Chloride Level 107, Creatinine 0.78, Estimat Glomerular Filtration Rate 86.0, Estimated GFR (Non- 71.1, Glucose Level 282#H, Hematocrit 41.00, Hemoglobin 13.7, Mean Corpuscular Hemoglobin 31.7, Mean Corpuscular Hemoglobin Concent 33.4, Mean Corpuscular Volume 95, Mean Platelet Volume 11.9H, Platelet Count 275, Potassium Level 4.4, Red Blood Count 4.32, Red Cell Distribution Width 14.3, Sodium Level 137, Total Bilirubin 0.6, Total Protein 5.5L, White Blood Count 10.01, Absolute Band Neutrophils 0.2, Atypical Lymphocytes 17, Band Neutrophils % 2, Basophils # (Manual) 0.0, Basophils % ( Manual) 0, Blood Morphology Comment Normal, Differential Total Cells Counted 100 , Eosinophils # 0.0, Eosinophils % (Manual) 0, Hemoglobin A1c 11.2H, Lymphocytes # 1.6, Lymphocytes % (Manual) 16L, Metamyelocytes % 0, Monocytes # 0.9, Monocytes % (Manual) 9, Neutrophils # 5.6, Segmented Neutrophils % 56 04/08/16 05:10: Absolute Band Neutrophils 0.0, Albumin 2.6L, Anion Gap 13.7, Band Neutrophils % 0, Basophils # (Auto) , Basophils # (Manual) 0.0, Basophils % (Manual) 0, Basophils (%) (Auto) , Blood Morphology Comment Normal, Blood Urea Nitrogen 13, Calcium Level 9.1, Carbon Dioxide Level 19L, Chloride Level 109H, Creatinine 0.64, Differential Total Cells Counted 100, Eosinophils # 0.2, Eosinophils # ( Auto) , Eosinophils % (Manual) 3, Eosinophils (%) (Auto) , Estimat Glomerular Filtration Rate 108.0, Estimated GFR (Non- 89.3, Glucose Level 253H, Hematocrit 39.70, Hemoglobin 13.5, Lymphocytes # 5.0, Lymphocytes # (Auto ) , Lymphocytes % (Manual) 56H, Lymphocytes (%) (Auto) , Mean Corpuscular Hemoglobin 31.3, Mean Corpuscular Hemoglobin Concent 34.0, Mean Corpuscular Volume 92, Mean Platelet Volume 12.7H, Metamyelocytes % 0, Monocytes # 0.2, Monocytes # (Auto) , Monocytes % (Manual) 3, Monocytes (%) (Auto) , Neutrophils # 3.4, Neutrophils # (Auto) , Neutrophils (%) (Auto) , Phosphorus Level 2.9, Platelet Count 275, Potassium Level 4.3, Red Blood Count 4.32, Red Cell Distribution Width 14.2, Segmented Neutrophils % 38L, Sodium Level 137, White Blood Count 8.99 MICRO 04/06 Blood culture Negative to date 04/06 Urine culture Gram negative bacilli IMAGING 04/08/16 ECHO: PENDING. Prelim: LVEF 55%. 04/07/16 CT CHEST W INDICATION: Hilar fullness. EXAMINATION: CT chest obtained with IV contrast bolus. FINDINGS: There are no enlarged mediastinal nodes. There is evidence of pulmonary emboli in the right pulmonary artery and lower lobe branches. There is no perihilar mass. There are no enlarged axillary nodes. There is no pericardial fluid but there is a trace of pleural fluid on the right side with no significant left-sided pleural fluid. Lung parenchymal windows demonstrate bibasilar atelectatic changes but no zaid consolidation or pulmonary parenchymal mass. Visualized portions of the upper abdomen are unremarkable. IMPRESSION: Evidence of right-sided pulmonary emboli. There is cardiomegaly. There is bibasilar atelectasis with a trace of pleural fluid on the right side. No overt adenopathy is seen. 04/07/16 CHEST PA/LAT (2 VIEW)* INDICATION: Right hilar fullness. EXAMINATION: Two-view chest dated 04/07/2016. COMPARISON: Previous portable chest from 2015. FINDINGS: There is persistent prominence of the right perihilar region and lymphadenopathy with an adjacent small lung nodule not excluded. CT imaging recommended. The remaining lungs demonstrate minimal left base atelectasis. There are no effusions. Heart is unremarkable. Metallic device overlies the right upper quadrant. There are rounded densities superimposed upon the lower thoracic spine, likely stool in the adjacent colon, less likely lesions in the adjacent lung, but again CT imaging would be recommended. IMPRESSION: 1. Abnormal findings in the right perihilar region and questionably overlying the thoracic spine distally. See above discussion. CT imaging recommended. 04/06/16 PELVIS INDICATION: Weakness EXAMINATION: Pelvis 04/06/2016 COMPARISON: None FINDINGS: Frontal view of the pelvis demonstrates no evidence for fracture or dislocation although examination is limited by patient body habitus. IMPRESSION: 1. No acute abnormality, however, if there is persistent pain or patient cannot bear weight, further imaging recommended because of the given limitations as above. 04/06/16 CHEST 1 VIEW, AP/PA ONLY* INDICATION: Weakness. EXAMINATION: Chest, . Comparison made to 02/03/2013. FINDINGS: There is prominence of the right perihilar region. The heart is mildly prominent. Atelectasis is seen at the left lung base. Remaining lungs demonstrate chronic appearing changes. No pneumothorax is seen. IMPRESSION: 1. Prominence of the right hilum. CT imaging recommended to exclude lymphadenopathy. The remaining changes unremarkable as discussed above. ASSESSMENT Xuan Pascal is a 81 year old female admitted from ED 04/07 with falls at home. She was found to have complicated UTI and hyperglycemia with uncontrolled diabetes mellitus type II. She was also found to have right perihilar density of uncertain significance. PLAN * Falls at home: PT eval and treat. * Complicated UTI due to gram negative bacilli: Did not meet sepsis criteria on admit. Culture pending. Empiric levofloxacin. * Dehydration: NS bolus on admit. I&O, daily weight. * Diabetes Mellitus Type II, Uncontrolled: Quite hyperglycemic on admit. A1C 11.2. Responded well to insulin. Suspect non-adherence. Basal bolus regimen with sliding scale. Monitor glucose trend. * Right Perihilar Mass: Resolved. Mass present. Prominence of right hilum noted on 2-view image. Further characterize with CT chest. * Right pulmonary embolism: CT as noted. Therapeutic enoxaparin. Started warfarin 04/08. * F/E/N: Diabetic diet. IVF. Peripheral IV. IVF. * Prophylaxis: Enoxaparin * Code Status: DNR * Dispo: Inpatient. Expect at least 3 day stay then transition to skilled care for physical rehab. CHRONIC ISSUES * HTN: Metoprolol * Bladder Spasms: Resume tolterodine at discharge. GERARDO BRODY MD Apr 08, 2016 14:43
--- NOTE | 2016-04-08 15:17 | NUR ---
Pt. is open to going to skilled care at [facility] or [facility]. SW contacted [facility] and they do not have any openings at this time. SW sent information to [facility] to review. They will review the information but may not be able to accept Pt. on Monday due to insufficient staff available to make an acceptance determination because of the holiday weekend. Pt. has been informed of this.
[2016-04-08 15:36] VITALS: BP 127/61
--- NOTE | 2016-04-08 16:41 | OT Therapy Evaluation (E) ---
POC Plan of Care Problems Identified: Activity Tolerance, ADLs, Balance, Lt UE Strength, Rt UE Strength, Safety Awareness Plan: Evaluation-OT, ADL/Self Care Management, Therapy Exercises, Therapy Activities, Pt/Family/Staff Education Frequency of OT: Five times weekly Therapy to Include: ADL training, Balance with ADLs, Pt/family education Discharge Recommendations: TCU/Skilled NH (Pt would benefit from further therapy. ) Pt would benefit from skilled occupational therapy services to improve independence with self care tasks and simple IADL tasks for return to prior level of function with increased safety awareness. Additionally, to provide recommendations for within the home. Pt. Aware of Dx and Prognosis: Yes Pt. Aware of Risk & Benefit: Yes Goals: Discussed with patient, Discussed with family Short Term Goals STG Time Frame: 3 Days Will Perform Grooming: With Setup/SBA Will Dress Upper Extremity: With Setup/SBA Will do Toileting: With Setup/SBA Will Perform Funct Transfer: With Setup/SBA STG #1 Pt will participate in 15 min of ther-ex with 4 or less rest breaks. [employer] Goals LTG Time Frame: 5 Days Will Dress Upper Extremity: Independently Will Dress Lower Extremity: With Setup/SBA Will do Tub/Shower Transfer: With Setup/SBA Will Bathe Self: With Setup/SBA Will do Toilet Transfers: Independently Will do Toilieting: Independently Will Perform Kitchen Mobility: Independently Inital Evaluation/General Service Date/Time 04/08/16, 16:34 Primary Diagnosis: (1) Hyperglycemia ICD Code: R73.9 (2) Urinary tract infection ICD Code: N39.0 Treatment Diagnosis: (1) Weakness ICD Code: R53.1 Onset Date: 04/03/16 Start of Care Date: Apr 08, 2016 Precaution/Isolation: Standard Precautions Fall Level: High Risk 51 or greater Resuscitation Status: Do Not Resuscitate Reason for Referral: Evaluation and Treat Pertinent Medical History: Other (HTn, uncontrolled DM type 2, essential tremor , hx of breast cancer, fall at home. ) Pain Level: 0 Oxygen Needed: Room air Rehabilitation Potential: Good Potential Based On Patient's motivation to return home. Living Status Prior to Admit: Alone (Lives in a 2 level home with basement. All needs on main floor. ) Pt able to complete self care tasks independently. Used to do cooking and cleaning, but does not think she will do that once she gets home. Wants to get Meals on Wheels. Pt completes medication and finance management. Does not drive. Support Persons: Adult Child Entry Into Home: [place] with Railing Steps Into Home: 6 Shower and Tub Type: Tub/shower combo-rails Assist Devices: SPC (Uses a cane mostly, because a FWW is harder to get through the home. Dr. Vega wants pt to use a walker.), Tub Bench Toilet Type: Standard with grab bars Comment Pt reports 2-3 falls within the last six months. Pt has a LifeAlert. Current Function Assessment Mental Status Patient Orientation: Person Mental Status: Alert Cognition Attention: Intact Memory: Intact Safety/Judgement: Intact Visual/Perceptual Skills Glassess: Yes (Lined bifocals ) Hand Dominance Hand Dominance: Right ROM/Strength Range of Motion : ROM: WNL Strength Comment BUE 4-/5 Neurological Coordination: Minimally impaired Endurance Activity Endurance: Fair Bed Mobility/Transfers Sit to Stand: CGA Chair Transfer: CGA Sitting Balance: WFL ADLs Grooming: Grooming Status: CGA Dressing Dressing: Minimum assist Bathing Shower/Bench Transfer Ability: Minimum assist Toileting Toilet Hygiene: CGA Toilet Transfer Ability: CGA CPT/G Codes Time In: 16:30 Time Out: 17:00 Total Minutes: 30 (04/29 eval, 04/19 ADL) Codes/Minutes: 25683 ADL EA (Completed sit to stand transfer with CGA. Completed functional mobility from room to nurses station with CGA. Verbal cueing to keep walker close to body. Upon entering room, pt reports no SOA. Educated and discussed with patient and family ways to improve safety within the home and educated on energy conservation techniques.) NITZA LANDEROS OT Apr 08, 2016 16:41
[2016-04-08] MEDS: warFARin 5 MG (COUMADIN) TAB PO SCH (18:06)
--- NOTE | 2016-04-08 19:00 | NUR ---
Continued to encourage increased activity throughout the shift. She maintains she wants to go home but she is not always willing to increase activity levels. Fatigues easily. No shortness of breath on room air.
[2016-04-08] MEDS ORDERED: SODIUM CHLORIDE 100 ML ONE (21:10)
[2016-04-08] MEDS: LEVOFLOXACIN 500 MG/100 ML IV 100 ML IV SCH (21:19)
[2016-04-08] MEDS: INSULIN GLARGINE 1 UNIT/0.01ML (LANTUS) DOSE SC SCH (21:20)
[2016-04-09 00:41] VITALS: BP 143/56
--- NOTE | 2016-04-09 04:11 | NUR ---
tylenol for burning pain at urethra rated 6/10.
[2016-04-09] MEDS: INSULIN LISPRO 1 UNIT/0.01 ML (HUMALOG) DOSE SC SCH ×7 (06:42→21:00)
--- NOTE | 2016-04-09 06:45 | NUR ---
Patient states after tylenol and after urinating she was able to rest. Feels "somewhat" better.
[2016-04-09] MEDS: PANTOPRAZOLE 40 MG (PROTONIX) TAB PO SCH (06:51)
[2016-04-09 07:59] VITALS: BP 144/68
--- NOTE | 2016-04-09 08:00 | NUR ---
Pt sitting up in bed at this time. States she doesn't feel well but can't pinpoint what's wrong. States "I feel like I did before I came into the hospital". Denies pain, SOA, dizziness. Will continue to monitor. Skin warm, dry, intact. Resprs nonlabored, even on RA. SL intact. Call light within reach. Denies needs.
[2016-04-09] MEDS: meTOprolol TARTRATE 25 MG (LOPRESSOR) TABLET PO SCH (09:27)
[2016-04-09] MEDS: ASPIRIN 81 MG CHEW (CHILDREN'S ASA) PO SCH (09:27)
[2016-04-09] MEDS: ENOXAPARIN 80 MG/0.8 ML (LOVENOX) SYR SC SCH ×2 (09:28→21:21)
[2016-04-09] MEDS: NS FLUSH 3 ML DAILY IV SCH (09:36)
--- NOTE | 2016-04-09 11:43 | Progress Note-A/P (E) ---
Progress Note Subjective: Patient reported some malaise this morning, however this seems to have resolved. Denies abdominal pain or diarrhea. Objective: Current Medications Dextrose 15 gm Q15M PRN PO Dextrose (PRN PRN IV Glucagon 1 mg PRN PRN IM Acetaminophen 650 mg Q6H PRN PO Pantoprazole 40 mg DAILY@07 PO Ondansetron 4 mg Q6H PRN IV Polyethylene Glycol 17 gm DAILY PRN PO Docusate 100 mg BID PRN PO Bisacodyl [address] Metoprolol Tartrate 25 mg DAILY PO Lantus 30 unit HS SC Aspirin 81 mg DAILY@0900 PO Levofloxacin DAILY@21 IV Insulin Human Lispro SUPPLEMENTAL SCALE QIDACHS SC\ Enoxaparin 80 mg Q12HR SC Insulin Human Lispro 15 unit TIDWM SC Warfarin 10 mg DAILY@1700 PO Vital Signs Date Time Temp Pulse Resp B/P Pulse Ox O2 Delivery O2 Flow Rate FiO2 04/09/16 07:59 98.0 64 18 144/68 95 Room air I & O Past 24 hrs 04/09/16 07:00 Intake Total 1732 ml Output Total 400 ml Balance 1332 ml Intake Oral 1732 ml Output Urine Total 400 ml Physical Exam General--Awake and alert. No distress. HEENT--Normocephalic. MMM in oral cavity. Lungs--Clear to auscultation bilaterally. Nonlabored respirations. Heart--RRR. No murmurs. Abdomen--Normal bowel sounds. S/ND/NTTP. Extremities--No edema. Past 24 hour Lab Results Laboratory Results Past 24 Hrs 04/09/16 05:16: Prothromb Time International Ratio 1.1, Prothrombin Time 12.7 Microbiology 04/06/16 Blood Culture - Preliminary, Resulted No Growth in 48 hours 04/06/16 Urine Culture - Preliminary, Resulted Imaging Results 04/08/16 ECHO: PENDING. Prelim: LVEF 55%. 04/07/16 CT CHEST W IMPRESSION: Evidence of right-sided pulmonary emboli. There is cardiomegaly. There is bibasilar atelectasis with a trace of pleural fluid on the right side. No overt adenopathy is seen. 04/07/16 CHEST PA/LAT IMPRESSION: 1. Abnormal findings in the right perihilar region and questionably overlying the thoracic spine distally. See above discussion. CT imaging recommended. 04/06/16 PELVIS IMPRESSION: 1. No acute abnormality, however, if there is persistent pain or patient cannot bear weight, further imaging recommended because of the given limitations as above. 04/06/16 CHEST 1 VIEW IMPRESSION: 1. Prominence of the right hilum. CT imaging recommended to exclude lymphadenopathy. The remaining changes unremarkable as discussed above. Assessment/Plan PE Right sided, CT per above. Continue anticoagulation bridge with lovenox to warfarin. INR normal at this time. Continue to monitor. Falls at home Due to PE?? Continue PT/OT. Complicated UTI Culture pending. Empiric levofloxacin. Type II DM A1c 11.2, continue accu cheks (72-629) and SSI. On humalog and lantus at home. ? Compliance. HTN Continue home metoprolol. Bladder spasms Resume home tolterodine on discharge. Code status DNR DVT proph Therapeutic lovenox. FEN Diabetic diet. IVF's provided on admission. Electrolytes normal yesterday. Continue to monitor. Dispo Continue inpatient status for above issues. Waiting for INR to get closer to therapeutic. CINDY NAIR MD Apr 09, 2016 11:43
--- NOTE | 2016-04-09 12:24 | NUR ---
Pt endorses feeling much better than this morning. Denies needs.
[2016-04-09 15:20] VITALS: BP 140/72
[2016-04-09] MEDS: warFARin 5 MG (COUMADIN) TAB PO SCH (18:05)
--- NOTE | 2016-04-09 19:41 | NUR ---
Pt sitting up in bed at this time. Skin warm, dry, intact. Resprs nonlabored, even on RA. SL intact. Call light within reach. Denies needs.
[2016-04-09] MEDS: INSULIN GLARGINE 1 UNIT/0.01ML (LANTUS) DOSE SC SCH (21:21)
[2016-04-09] MEDS: LEVOFLOXACIN 500 MG/100 ML IV 100 ML IV SCH (21:21)
[2016-04-09 23:49] VITALS: BP 138/73
[2016-04-10] MEDS: PANTOPRAZOLE 40 MG (PROTONIX) TAB PO SCH (06:17)
--- NOTE | 2016-04-10 06:40 | NUR ---
Patient rests in bed throughout night without needs. Sao2 on room air >91% all night. No needs at this time.
[2016-04-10 08:04] VITALS: BP 176/67
[2016-04-10] MEDS: INSULIN LISPRO 1 UNIT/0.01 ML (HUMALOG) DOSE SC SCH ×7 (08:23→21:00)
--- NOTE | 2016-04-10 08:57 | Progress Note-A/P (E) ---
Progress Note Subjective: Patient is up to chair. She is feeling better. Denies shortness of air or chest pains. Discussing discharge options. Objective: Current Medications Dextrose 15 gm Q15M PRN PO Dextrose (PRN PRN IV Glucagon 1 mg PRN PRN IM Acetaminophen 650 mg Q6H PRN PO Pantoprazole 40 mg DAILY@07 PO Ondansetron 4 mg Q6H PRN IV Polyethylene Glycol 17 gm DAILY PRN PO Docusate 100 mg BID PRN PO Bisacodyl 10 mg DAILY PRN [place] Metoprolol Tartrate 25 mg DAILY PO Lantus 30 unit HS SC Aspirin 81 mg DAILY@0900 PO Levofloxacin DAILY@21 IV Insulin Human Lispro SUPPLEMENTAL SCALE QIDACHS SC\ Enoxaparin 80 mg Q12HR SC Insulin Human Lispro 15 unit TIDWM SC Warfarin 10 mg DAILY@1700 PO Vital Signs Date Time Temp Pulse Resp B/P Pulse Ox O2 Delivery O2 Flow Rate FiO2 04/10/16 08:04 98.2 69 18 176/67 94 Room air I & O Past 24 hrs 04/10/16 07:00 Intake Total 1887 ml Output Total 800 ml Balance 1087 ml Intake Oral 1887 ml Output Urine Total 800 ml Physical Exam General--Awake and alert. No distress. HEENT--Normocephalic. MMM in oral cavity. Lungs--Clear to auscultation bilaterally. Nonlabored respirations. Heart--RRR. No murmurs. Abdomen--Normal bowel sounds. S/ND/NTTP. Extremities--No edema. Past 24 hour Lab Results Laboratory Results Past 24 Hrs 04/10/16 05:20: Prothromb Time International Ratio 1.3, Prothrombin Time 14.9 Microbiology 04/06/16 Blood Culture - Preliminary, Resulted No Growth in 72 hours 04/06/16 Urine Culture - Final, Complete Escherichia coli >100,000 cfu/ml Proteus mirabilis 50-100,000 cfu/ml E. coli P. mirab. Antibiotic WILFRIDO INT WILFRIDO INT Ampicillin >=32 R <=2 S Ampicillin/sulbactam 16 I <=2 S Cefazolin 8 S <=4 S Ceftriaxone <=1 S <=1 S Ciprofloxacin <=0.25 S <=0.25 S Gentamicin <=1 S <=1 S Nitrofurantoin <=16 S 128 R Trimethoprim/Sulfa <=20 S <=20 S Imaging Results 04/08/16 ECHO: PENDING. Prelim: LVEF 55%. 04/07/16 CT CHEST W IMPRESSION: Evidence of right-sided pulmonary emboli. There is cardiomegaly. There is bibasilar atelectasis with a trace of pleural fluid on the right side. No overt adenopathy is seen. 04/07/16 CHEST PA/LAT IMPRESSION: 1. Abnormal findings in the right perihilar region and questionably overlying the thoracic spine distally. See above discussion. CT imaging recommended. 04/06/16 PELVIS IMPRESSION: 1. No acute abnormality, however, if there is persistent pain or patient cannot bear weight, further imaging recommended because of the given limitations as above. 04/06/16 CHEST 1 VIEW IMPRESSION: 1. Prominence of the right hilum. CT imaging recommended to exclude lymphadenopathy. The remaining changes unremarkable as discussed above. Assessment/Plan PE Right sided, CT per above. Patient denies any dyspnea, Continue anticoagulation bridge with lovenox to warfarin. INR 1.3 today. Continue to monitor. Falls at home Due to PE?? Continue PT/OT. Patient will need SNU on discharge. Patient and family looking into options. Care coordination will need to help facilitate. Complicated UTI Culture shows e. coli >100k cfu's and proteus with 50-100k cfu's. Both are susceptible to FQ's, continue levofloxacin. Type II DM A1c 11.2, continue accu cheks (92-253) and SSI. On humalog and lantus at home. ? Compliance. HTN Continue home metoprolol. Bladder spasms Resume home tolterodine on discharge. Constipation Will provide Miralax. Code status DNR DVT proph Therapeutic lovenox. FEN Diabetic diet. IVF's provided on admission. Electrolytes normal yesterday. Continue to monitor. Dispo Continue inpatient status for above issues. Waiting for INR to get closer to therapeutic. Urine culture reveals e. coli that is susceptible to cipro, continue levofloxacin. Note UTI treatment above. Patient asking about swing bed option. Encouraging patient to look at rehab facilities as she will get more consistent PT there. CINDY NAIR MD Apr 10, 2016 08:57
[2016-04-10] MEDS: NS FLUSH 3 ML DAILY IV SCH (09:00)
[2016-04-10] MEDS: meTOprolol TARTRATE 25 MG (LOPRESSOR) TABLET PO SCH (09:31)
[2016-04-10] MEDS: ASPIRIN 81 MG CHEW (CHILDREN'S ASA) PO SCH (09:31)
[2016-04-10] MEDS: ENOXAPARIN 80 MG/0.8 ML (LOVENOX) SYR SC SCH ×2 (09:31→21:18)
[2016-04-10 15:50] VITALS: BP 168/72
[2016-04-10] MEDS: warFARin 5 MG (COUMADIN) TAB PO SCH (17:55)
--- NOTE | 2016-04-10 19:00 | NUR ---
Patient has had no complaints of SOA at rest or with ambulation. She has increased her activity but continues to need encouragement to keep up the physical work involved in recovery.
[2016-04-10 19:37] VITALS: BP 133/90
--- NOTE | 2016-04-10 20:10 | NUR ---
Patient ambulated around the nurses with assist of nurse aide. No shortness of air noted. Is alert and oriented. No discomforts voiced at this time.
[2016-04-10] MEDS: LEVOFLOXACIN 500 MG/100 ML IV 100 ML IV SCH (21:17)
[2016-04-10] MEDS: INSULIN GLARGINE 1 UNIT/0.01ML (LANTUS) DOSE SC SCH (21:18)
--- NOTE | 2016-04-10 22:00 | NUR ---
Ready for sleep. Ambulates to bathroom with assist. No shortness of air with exertion tonight. Skin warm and dry. Color sl pale. Denies any discomforts. Patient is slowly getting stronger. Talks about going to [place] for rehab in a couple of days. Pleasant. No discomforts voiced.
[2016-04-10 23:33] VITALS: BP 133/77
--- NOTE | 2016-04-11 05:23 | NUR ---
Rested at long intervals tonight. No oxygen on tonight. Is alert and oriented. SL patent without complications note at site. Continues to do well with assistance to the bathroom and back. Patient is slowly getting stronger. No concerns voiced at this time. Call light within reach.
[2016-04-11] MEDS: PANTOPRAZOLE 40 MG (PROTONIX) TAB PO SCH (06:07)
[2016-04-11 06:31] LABS: MEAN CORPUSCULAR HEMOGLOBIN 31.1 PG (26.0-34.0); MEAN CORPUSCULAR HGB CONC 33.9 g/dL (31.0-37.0); MEAN CORPUSCULAR VOLUME 92 FL (80-100); MEAN PLATELET VOLUME 12.8 FL (6.0-9.5); PLATELET COUNT 291 10^3uL (150-450); WHITE BLOOD COUNT 9.59 10^3uL (4.0-11.0)
[2016-04-11 06:54] LABS: ALBUMIN 2.9 g/dL (3.4-5.0); ANION GAP 14.5 MEQ/L (3-15); MAGNESIUM* 1.9 mg/dL (1.6-2.3)
[2016-04-11 07:39] LABS: BAND NEUTROPHILS % 1 % (0-6); EOSINOPHILS % 10 % (0-4); LYMPHOCYTES # 4.4 #; MONOCYTES # 0.5 #; MONOCYTES % 5 % (3-11); SEGMENTED NEUTROPHILS % 38 % (51-67); TOTAL CELLS COUNTED 100
[2016-04-11 07:40] LABS: RBC MORPH NORMAL (NORMAL)
--- NOTE | 2016-04-11 08:18 | Progress Note (E) ---
Progress Note SUBJECTIVE Overnight, no major issues. INR still not to goal. Planning discharge to [facility] for skilled care though not certain yet if bed is available. Noted that urine grew Proteus and E coli, both sensitive to quinolones (which she has been taking since admit.) Regarding placement, she changed her mind and wants instead to go to [place]. OBJECTIVE Vital Signs Date Time Temp Pulse Resp B/P Pulse Ox O2 Delivery O2 Flow Rate FiO2 04/10/16 23:33 97.7 71 16 133/77 95 Room air I & O 04/10/16 04/11/16 Cumulative From/Thru 19:00 07:00 04/07/16 00:51 - 04/11/16 06:05 Intake Total 877 ml 450 ml 7410 ml Output Total 800 ml 500 ml 2800 ml Balance 77 ml -50 ml 4610 ml GEN: Awake, alert, interactive, oriented, NAD at present. HEENT: EOMI, clear sclerae, moist oral mucosa. CV: Regular without murmur. PULM: CTA B with good air movement. Intermittent and faint basilar rales. ABD: Obese, soft, non-tender. Normal bowel sounds. Tolerates exam well. EXTR: 1+ BLE edema. INTEG: Age related changes. Pallor. No rash. NEURO: No focal motor neuro deficit. Lab-Past 14 Days, 35 Results 04/06/16 20:30: Activated Partial Thromboplast Time 29.8, Alanine Aminotransferase (ALT/SGPT) 31 , Albumin 3.8, Albumin/Globulin Ratio 1.225, Alkaline Phosphatase 66, Anion Gap 14.8, Aspartate Amino Transf (AST/SGOT) 14L, BUN/Creatinine Ratio 22H, Basophils # (Auto) 0.1, Basophils (%) (Auto) 0, Blood Urea Nitrogen 17, C- Reactive Protein 4.40H, Calcium Level 9.4, Calcium/Ionized Calcium Ratio 4.2, Calculated Osmolality 282, Carbon Dioxide Level 22, Chloride Level 102, Creatine Kinase MB < 0.3, Creatinine 0.76, Eosinophils # (Auto) 0.2, Eosinophils (%) (Auto) 2, Estimat Glomerular Filtration Rate 88.6, Estimated GFR (Non- 73.2, Glucose Level 444#*H, Hematocrit 44.00, Hemoglobin 15.1, Lipase 22L, Lymphocytes # (Auto) 3.2, Lymphocytes (%) (Auto) 28 , Magnesium Level 2.1, Mean Corpuscular Hemoglobin 31.3, Mean Corpuscular Hemoglobin Concent 34.3, Mean Corpuscular Volume 91, Mean Platelet Volume 11.8H , Monocytes # (Auto) 1.3, Monocytes (%) (Auto) 11, MP-Otm-S-Type Natriuretic Peptide 90, Neutrophils # (Auto) 6.8, Neutrophils (%) (Auto) 59, Platelet Count 295, Potassium Level 4.5, Prothromb Time International Ratio 1.0, Prothrombin Time 11.6, Red Blood Count 4.82, Red Cell Distribution Width 14.1, Serum Alcohol < 10.0L, Sodium Level 135, Total Bilirubin 0.6, Total Creatine Kinase < 20#L, Total Protein 6.9, Troponin I < 0.012, White Blood Count 11.55H 04/06/16 22:10: Urine Bacteria 2+H, Urine Bilirubin Negative, Urine Clarity Cloudy, Urine Collection Type Random voided, Urine Color Yellow, Urine Glucose (UA) 3+H, Urine Ketones 1+H, Urine Leukocyte Esterase TraceH, Urine Nitrite PositiveH, Urine Protein TraceH, Urine RBC 5-10H, Urine RBC (Auto) 2+H, Urine Specific Funk 1.020, Urine Squamous Epithelial Cells None, Urine Urobilinogen 0.2, Urine WBC TntcH, Urine pH 6.5, Volume Urine Centrifuged 12 ml 04/06/16 23:54: Thyroid Stimulating Hormone (TSH) 1.82# 04/07/16 06:10: Alanine Aminotransferase (ALT/SGPT) 26L, Albumin 2.9#L, Albumin/Globulin Ratio 1.115, Alkaline Phosphatase 53, Anion Gap 13.1, Aspartate Amino Transf (AST/SGOT ) 8L, BUN/Creatinine Ratio 18, Blood Urea Nitrogen 14, Calcium Level 8.8, Calcium/Ionized Calcium Ratio 4.4, Calculated Osmolality 276L, Carbon Dioxide Level 22, Chloride Level 107, Creatinine 0.78, Estimat Glomerular Filtration Rate 86.0, Estimated GFR (Non- 71.1, Glucose Level 282#H, Hematocrit 41.00, Hemoglobin 13.7, Mean Corpuscular Hemoglobin 31.7, Mean Corpuscular Hemoglobin Concent 33.4, Mean Corpuscular Volume 95, Mean Platelet Volume 11.9H, Platelet Count 275, Potassium Level 4.4, Red Blood Count 4.32, Red Cell Distribution Width 14.3, Sodium Level 137, Total Bilirubin 0.6, Total Protein 5.5L, White Blood Count 10.01, Absolute Band Neutrophils 0.2, Atypical Lymphocytes 17, Band Neutrophils % 2, Basophils # (Manual) 0.0, Basophils % ( Manual) 0, Blood Morphology Comment Normal, Differential Total Cells Counted 100 , Eosinophils # 0.0, Eosinophils % (Manual) 0, Hemoglobin A1c 11.2H, Lymphocytes # 1.6, Lymphocytes % (Manual) 16L, Metamyelocytes % 0, Monocytes # 0.9, Monocytes % (Manual) 9, Neutrophils # 5.6, Segmented Neutrophils % 56 04/08/16 05:10: Absolute Band Neutrophils 0.0, Albumin 2.6L, Anion Gap 13.7, Band Neutrophils % 0, Basophils # (Auto) , Basophils # (Manual) 0.0, Basophils % (Manual) 0, Basophils (%) (Auto) , Blood Morphology Comment Normal, Blood Urea Nitrogen 13, Calcium Level 9.1, Carbon Dioxide Level 19L, Chloride Level 109H, Creatinine 0.64, Differential Total Cells Counted 100, Eosinophils # 0.2, Eosinophils # ( Auto) , Eosinophils % (Manual) 3, Eosinophils (%) (Auto) , Estimat Glomerular Filtration Rate 108.0, Estimated GFR (Non- 89.3, Glucose Level 253H, Hematocrit 39.70, Hemoglobin 13.5, Lymphocytes # 5.0, Lymphocytes # (Auto ) , Lymphocytes % (Manual) 56H, Lymphocytes (%) (Auto) , Mean Corpuscular Hemoglobin 31.3, Mean Corpuscular Hemoglobin Concent 34.0, Mean Corpuscular Volume 92, Mean Platelet Volume 12.7H, Metamyelocytes % 0, Monocytes # 0.2, Monocytes # (Auto) , Monocytes % (Manual) 3, Monocytes (%) (Auto) , Neutrophils # 3.4, Neutrophils # (Auto) , Neutrophils (%) (Auto) , Phosphorus Level 2.9, Platelet Count 275, Potassium Level 4.3, Red Blood Count 4.32, Red Cell Distribution Width 14.2, Segmented Neutrophils % 38L, Sodium Level 137, White Blood Count 8.99 04/09/16 05:16: Prothromb Time International Ratio 1.1, Prothrombin Time 12.7H 04/10/16 05:20: Prothromb Time International Ratio 1.3, Prothrombin Time 14.9H 04/11/16 05:05: Absolute Band Neutrophils 0.1, Albumin 2.9L, Anion Gap 14.5, Band Neutrophils % 1, Basophils # (Auto) , Basophils # (Manual) 0.0, Basophils % (Manual) 0, Basophils (%) (Auto) , Blood Morphology Comment Normal, Blood Urea Nitrogen 18, Calcium Level 9.6, Carbon Dioxide Level 22, Chloride Level 106, Creatinine 0.77 , Differential Total Cells Counted 100, Eosinophils # 0.9, Eosinophils # (Auto) , Eosinophils % (Manual) 10H, Eosinophils (%) (Auto) , Estimat Glomerular Filtration Rate 87.3, Estimated GFR (Non- 72.1, Glucose Level 234H, Hematocrit 38.90, Hemoglobin 13.2, Lymphocytes # 4.4, Lymphocytes # (Auto ) , Lymphocytes % (Manual) 46, Lymphocytes (%) (Auto) , Mean Corpuscular Hemoglobin 31.1, Mean Corpuscular Hemoglobin Concent 33.9, Mean Corpuscular Volume 92, Mean Platelet Volume 12.8H, Monocytes # 0.5, Monocytes # (Auto) , Monocytes % (Manual) 5, Monocytes (%) (Auto) , Neutrophils # 3.6, Neutrophils # (Auto) , Neutrophils (%) (Auto) , Phosphorus Level 4.0#, Platelet Count 291, Potassium Level 4.5, Red Blood Count 4.24, Red Cell Distribution Width 14.6, Segmented Neutrophils % 38L, Sodium Level 137, White Blood Count 9.59, Magnesium Level 1.9 MICRO 04/06 Blood culture Negative to date 04/06 Urine culture Gram negative bacilli IMAGING 04/08/16 ECHO: PENDING. Prelim: LVEF 55%. 04/07/16 CT CHEST W INDICATION: Hilar fullness. EXAMINATION: CT chest obtained with IV contrast bolus. FINDINGS: There are no enlarged mediastinal nodes. There is evidence of pulmonary emboli in the right pulmonary artery and lower lobe branches. There is no perihilar mass. There are no enlarged axillary nodes. There is no pericardial fluid but there is a trace of pleural fluid on the right side with no significant left-sided pleural fluid. Lung parenchymal windows demonstrate bibasilar atelectatic changes but no zaid consolidation or pulmonary parenchymal mass. Visualized portions of the upper abdomen are unremarkable. IMPRESSION: Evidence of right-sided pulmonary emboli. There is cardiomegaly. There is bibasilar atelectasis with a trace of pleural fluid on the right side. No overt adenopathy is seen. 04/07/16 CHEST PA/LAT (2 VIEW)* INDICATION: Right hilar fullness. EXAMINATION: Two-view chest dated 04/07/2016. COMPARISON: Previous portable chest from 2015. FINDINGS: There is persistent prominence of the right perihilar region and lymphadenopathy with an adjacent small lung nodule not excluded. CT imaging recommended. The remaining lungs demonstrate minimal left base atelectasis. There are no effusions. Heart is unremarkable. Metallic device overlies the right upper quadrant. There are rounded densities superimposed upon the lower thoracic spine, likely stool in the adjacent colon, less likely lesions in the adjacent lung, but again CT imaging would be recommended. IMPRESSION: 1. Abnormal findings in the right perihilar region and questionably overlying the thoracic spine distally. See above discussion. CT imaging recommended. 04/06/16 PELVIS INDICATION: Weakness EXAMINATION: Pelvis 04/06/2016 COMPARISON: None FINDINGS: Frontal view of the pelvis demonstrates no evidence for fracture or dislocation although examination is limited by patient body habitus. IMPRESSION: 1. No acute abnormality, however, if there is persistent pain or patient cannot bear weight, further imaging recommended because of the given limitations as above. 04/06/16 CHEST 1 VIEW, AP/PA ONLY* INDICATION: Weakness. EXAMINATION: Chest, . Comparison made to 02/03/2013. FINDINGS: There is prominence of the right perihilar region. The heart is mildly prominent. Atelectasis is seen at the left lung base. Remaining lungs demonstrate chronic appearing changes. No pneumothorax is seen. IMPRESSION: 1. Prominence of the right hilum. CT imaging recommended to exclude lymphadenopathy. The remaining changes unremarkable as discussed above. ASSESSMENT Xuan Pascal is a 81 year old female admitted from ED 04/07 with falls at home. She was found to have complicated UTI due to Proteus mirabilis and E coli. She had hyperglycemia with uncontrolled diabetes mellitus type II. She was also found to have right perihilar density of uncertain significance initially but this was ultimately found to be pulmonary embolism on CT scan. PLAN * Falls at home: PT eval and treat. Continue in skilled care. * Complicated UTI due to Proteus and E colii: Did not meet sepsis criteria on admit. Culture as noted. Empiric levofloxacin x 5 days with 2 additional days ciprofloxacin. * Dehydration: Resolved. NS bolus on admit. I&O, daily weight. * Diabetes Mellitus Type II, Uncontrolled: Quite hyperglycemic on admit. A1C 11.2. Responded well to insulin. Suspect non-adherence. Basal bolus regimen with sliding scale. Monitor glucose trend. Continue in skilled care. * Right Perihilar Mass: Resolved. Prominence of right hilum noted on 2-view image. Further characterize with CT chest showed pulmonary embolism. * Right pulmonary embolism: CT as noted. Therapeutic enoxaparin. Started warfarin 04/08. Requires further bridging in skilled care. * F/E/N: Diabetic diet. IVF. Peripheral IV. * Prophylaxis: Enoxaparin * Code Status: DNR * Dispo: Inpatient. [facility]. CHRONIC ISSUES * HTN: Metoprolol * Bladder Spasms: Resume tolterodine at discharge. GERARDO BRODY MD Apr 11, 2016 08:15
[2016-04-11] MEDS: ASPIRIN 81 MG CHEW (CHILDREN'S ASA) PO SCH (08:29)
[2016-04-11] MEDS: meTOprolol TARTRATE 25 MG (LOPRESSOR) TABLET PO SCH (08:29)
[2016-04-11] MEDS: INSULIN LISPRO 1 UNIT/0.01 ML (HUMALOG) DOSE SC SCH ×7 (08:29→21:00)
[2016-04-11] MEDS: ENOXAPARIN 80 MG/0.8 ML (LOVENOX) SYR SC SCH ×2 (08:31→21:20)
[2016-04-11] MEDS: NS FLUSH 3 ML DAILY IV SCH (08:35)
[2016-04-11 08:37] VITALS: BP 156/89
[2016-04-11] MEDS ORDERED: ENXP80I.8 SC (08:45)
[2016-04-11] MEDS ORDERED: BSC10SU PR (08:45)
[2016-04-11] MEDS ORDERED: POLY17PO2 PO (08:45)
[2016-04-11] MEDS ORDERED: INSU100V8 SC (08:45)
[2016-04-11] MEDS ORDERED: DOCU100C8 PO (08:45)
[2016-04-11] MEDS ORDERED: AC325T PO (08:45)
[2016-04-11] MEDS ORDERED: INSU100V2 SC ×2 (08:45)
--- NOTE | 2016-04-11 08:50 | Discharge Instructions (E) ---
Discharge Instructions Instructions * You were evaluated for urinary tract infection and your urine grew Proteus mirabilis and E coli, two bacteria that are common causes of urinary tract infection. This was treated in hospital with levofloxacin. * You were found to have a blood clot in your lung. This is called a pulmonary embolism. You will need to take blood thinner for a minimum of 6 months. You are current starting warfarin but this requires addition of enoxaparin, an injectable blood thinner, to be given until the warfarin has taken full effect. The effect of warfarin is measured with a blood test called INR and your goal INR is between 2 and 3. The enoxaparin can be stopped once your INR has been between 2 and 3 for two consecutive days. * You should no longer take NSAID medications including ibuprofen, because of a risk of increased bleeding when taking warfarin. * Continue using your incentive spirometry. These deep breathing exercises help in your recovery. * To help in your recovery, you are being discharged to correction at [facility] in [place]. Activity Instructions As tolerated. Doctor's Appointment Follow-up with your primary care doctor in 3-5 days. Discharge Diet: Carbohydrate controlled GERARDO BRODY MD Apr 11, 2016 08:50
--- NOTE | 2016-04-11 15:15 | NUR ---
[facility] came to visit with patient, they only have a memory care unit bed available. After discussion with PV, pt states she does not want to go to that unit. Pt and daughter request we contact [facility]. Since today is considered a holiday, transfer was not possible. Will be deferred until tomorrow. Alia notified.
[2016-04-11 15:23] VITALS: BP 128/63
[2016-04-11] MEDS: warFARin 5 MG (COUMADIN) TAB PO SCH (17:44)
--- NOTE | 2016-04-11 18:00 | NUR ---
Pt sitting up in chair at this time. Skin warm, dry, intact. Resprs nonlabored, even on RA. SL intact. Call light within reach. Denies needs.
[2016-04-11] MEDS ORDERED: CIPROFLOXACIN (CIPRO) 500 MG TABLET PO SCH (21:00)
[2016-04-11] MEDS: INSULIN GLARGINE 1 UNIT/0.01ML (LANTUS) DOSE SC SCH (21:20)
[2016-04-12 00:15] VITALS: BP 124/80
--- NOTE | 2016-04-12 05:55 | NUR ---
Pt is resting bed asleep, has had no complaints of pain or discomfort during this shift. Pt did ambulate 1 lap around unit before going to bed. Bed alarm is on, call light in reach, will continue to monitor.
[2016-04-12] MEDS: PANTOPRAZOLE 40 MG (PROTONIX) TAB PO SCH (06:40)
[2016-04-12] MEDS: INSULIN LISPRO 1 UNIT/0.01 ML (HUMALOG) DOSE SC SCH ×4 (07:29→12:35)
[2016-04-12 07:56] VITALS: BP 172/84
[2016-04-12] MEDS: ASPIRIN 81 MG CHEW (CHILDREN'S ASA) PO SCH (08:53)
[2016-04-12] MEDS: meTOprolol TARTRATE 25 MG (LOPRESSOR) TABLET PO SCH (08:53)
[2016-04-12] MEDS: ENOXAPARIN 80 MG/0.8 ML (LOVENOX) SYR SC SCH (08:55)
[2016-04-12] MEDS: NS FLUSH 3 ML DAILY IV SCH (08:58)
[2016-04-12] MEDS ORDERED: WRF5T PO (09:19)
[2016-04-12] MEDS ORDERED: fluCOnazole (DIFLUCAN) 100 MG TAB PO SCH (10:50)
--- NOTE | 2016-04-12 15:08 | NUR ---
Report called to TINA Cadet at [facility] 801. Pt changed into home clothes. SL removed with catheter tip intact. Skin warm, dry, intact. Resprs nonlabored, even on RA. Transportation here. Pt discharged at this time via w/c accompanied by [facility] staff and PAUL Cartagena. DC packet and belongings sent with patient. Pt gives this nurse and Mitzi stinson, thanking us for cares.
--- NOTE | 2016-04-12 16:52 | Discharge Summary (E) ---
Discharge Summary (E) Admit Date/Time Apr 06, 2016 at 23:23 Discharge Date/Time Apr 12, 2016 at 15:08 Admitting Provider Marcus Reyes MD Primary Care Provider Kahlil Oseguera MD Attending Provider Marcus Reyes MD, Michael MD Consulting Provider History and Present Illness See History and Physical for complete details. Xuan Pascal is a 81 year old female admitted from ED 04/07 with falls at home. She was found to have complicated UTI due to Proteus mirabilis and E coli. She had hyperglycemia with uncontrolled diabetes mellitus type II. She was also found to have right perihilar density of uncertain significance initially but this was ultimately found to be pulmonary embolism on CT scan. UTI was treated with antibiotic. PE was treated with enoxaparin and warfarin. Noted that she had INR the day of discharge that was therapeutic so she only needs one more day of enoxaparin after discharge. INR will need close monitoring. The day of discharge she mentioned discomfort with urination and external vaginal exam was consistent with vaginal yeast infection so she was given a single dose of fluconazole. She was felt to benefit from further rehab and she will complete recover in skilled care at [facility]. Hospital Course and Treatment * Falls at home: PT eval and treat. Continue in skilled care. * Complicated UTI due to Proteus and E colii: Did not meet sepsis criteria on admit. Culture as noted. Empiric levofloxacin x 5 days. * Dehydration: Resolved. NS bolus on admit. I&O, daily weight. * Diabetes Mellitus Type II, Uncontrolled: Quite hyperglycemic on admit. A1C 11.2. Responded well to insulin. Suspect non-adherence. Basal bolus regimen with sliding scale. Monitor glucose trend. Continue in skilled care. * Right Perihilar Mass: Resolved. Prominence of right hilum noted on 2-view image. Further characterize with CT chest showed pulmonary embolism. * Right pulmonary embolism: CT as noted. Therapeutic enoxaparin. Started warfarin 04/08. Requires further bridging in skilled care. * Vaginal Yeast Infection: Noted day of discharge. Fluconazole 150 mg PO dose given before discharge. * F/E/N: Diabetic diet. IVF. Peripheral IV. * Prophylaxis: Enoxaparin * Code Status: DNR * Dispo: Inpatient. Discharge to detention 04/12. Note she will only need enoxaparin for 1 more day because her INR was therapeutic 04/12. CHRONIC ISSUES * HTN: Metoprolol * Bladder Spasms: Resume tolterodine at discharge. Discharge Physicial Exam General Vital Signs Date Time Temp Pulse Resp B/P Pulse Ox O2 Delivery O2 Flow Rate FiO2 04/12/16 07:56 97.8 65 18 172/84 93 Room air GEN: Awake, alert, interactive, oriented, NAD at present. HEENT: EOMI, clear sclerae, moist oral mucosa. CV: Regular without murmur. PULM: CTA B with good air movement. Intermittent and faint basilar rales. ABD: Obese, soft, non-tender. Normal bowel sounds. Tolerates exam well. : Vulvar erythema with some areas of pallor and whitish discharge. Internal exam deferred. EXTR: 1+ BLE edema. INTEG: Age related changes. Pallor. No rash. NEURO: No focal motor neuro deficit. Laboratory/Radiology Data Laboratory Results-14 Days 04/06/16 20:30: Activated Partial Thromboplast Time 29.8, Alanine Aminotransferase (ALT/SGPT) 31 , Albumin 3.8, Albumin/Globulin Ratio 1.225, Alkaline Phosphatase 66, Anion Gap 14.8, Aspartate Amino Transf (AST/SGOT) 14L, BUN/Creatinine Ratio 22H, Basophils # (Auto) 0.1, Basophils (%) (Auto) 0, Blood Urea Nitrogen 17, C- Reactive Protein 4.40H, Calcium Level 9.4, Calcium/Ionized Calcium Ratio 4.2, Calculated Osmolality 282, Carbon Dioxide Level 22, Chloride Level 102, Creatine Kinase MB < 0.3, Creatinine 0.76, Eosinophils # (Auto) 0.2, Eosinophils (%) (Auto) 2, Estimat Glomerular Filtration Rate 88.6, Estimated GFR (Non- 73.2, Glucose Level 444#*H, Hematocrit 44.00, Hemoglobin 15.1, Lipase 22L, Lymphocytes # (Auto) 3.2, Lymphocytes (%) (Auto) 28 , Magnesium Level 2.1, Mean Corpuscular Hemoglobin 31.3, Mean Corpuscular Hemoglobin Concent 34.3, Mean Corpuscular Volume 91, Mean Platelet Volume 11.8H , Monocytes # (Auto) 1.3, Monocytes (%) (Auto) 11, QF-Wac-F-Type Natriuretic Peptide 90, Neutrophils # (Auto) 6.8, Neutrophils (%) (Auto) 59, Platelet Count 295, Potassium Level 4.5, Prothromb Time International Ratio 1.0, Prothrombin Time 11.6, Red Blood Count 4.82, Red Cell Distribution Width 14.1, Serum Alcohol < 10.0L, Sodium Level 135, Total Bilirubin 0.6, Total Creatine Kinase < 20#L, Total Protein 6.9, Troponin I < 0.012, White Blood Count 11.55H 04/06/16 22:10: Urine Bacteria 2+H, Urine Bilirubin Negative, Urine Clarity Cloudy, Urine Collection Type Random voided, Urine Color Yellow, Urine Glucose (UA) 3+H, Urine Ketones 1+H, Urine Leukocyte Esterase TraceH, Urine Nitrite PositiveH, Urine Protein TraceH, Urine RBC 5-10H, Urine RBC (Auto) 2+H, Urine Specific [place] 1.020, Urine Squamous Epithelial Cells None, Urine Urobilinogen 0.2, Urine WBC TntcH, Urine pH 6.5, Volume Urine Centrifuged 12 ml 04/06/16 23:54: Thyroid Stimulating Hormone (TSH) 1.82# 04/07/16 06:10: Alanine Aminotransferase (ALT/SGPT) 26L, Albumin 2.9#L, Albumin/Globulin Ratio 1.115, Alkaline Phosphatase 53, Anion Gap 13.1, Aspartate Amino Transf (AST/SGOT ) 8L, BUN/Creatinine Ratio 18, Blood Urea Nitrogen 14, Calcium Level 8.8, Calcium/Ionized Calcium Ratio 4.4, Calculated Osmolality 276L, Carbon Dioxide Level 22, Chloride Level 107, Creatinine 0.78, Estimat Glomerular Filtration Rate 86.0, Estimated GFR (Non- 71.1, Glucose Level 282#H, Hematocrit 41.00, Hemoglobin 13.7, Mean Corpuscular Hemoglobin 31.7, Mean Corpuscular Hemoglobin Concent 33.4, Mean Corpuscular Volume 95, Mean Platelet Volume 11.9H, Platelet Count 275, Potassium Level 4.4, Red Blood Count 4.32, Red Cell Distribution Width 14.3, Sodium Level 137, Total Bilirubin 0.6, Total Protein 5.5L, White Blood Count 10.01, Absolute Band Neutrophils 0.2, Atypical Lymphocytes 17, Band Neutrophils % 2, Basophils # (Manual) 0.0, Basophils % ( Manual) 0, Blood Morphology Comment Normal, Differential Total Cells Counted 100 , Eosinophils # 0.0, Eosinophils % (Manual) 0, Hemoglobin A1c 11.2H, Lymphocytes # 1.6, Lymphocytes % (Manual) 16L, Metamyelocytes % 0, Monocytes # 0.9, Monocytes % (Manual) 9, Neutrophils # 5.6, Segmented Neutrophils % 56 04/08/16 05:10: Absolute Band Neutrophils 0.0, Albumin 2.6L, Anion Gap 13.7, Band Neutrophils % 0, Basophils # (Auto) , Basophils # (Manual) 0.0, Basophils % (Manual) 0, Basophils (%) (Auto) , Blood Morphology Comment Normal, Blood Urea Nitrogen 13, Calcium Level 9.1, Carbon Dioxide Level 19L, Chloride Level 109H, Creatinine 0.64, Differential Total Cells Counted 100, Eosinophils # 0.2, Eosinophils # ( Auto) , Eosinophils % (Manual) 3, Eosinophils (%) (Auto) , Estimat Glomerular Filtration Rate 108.0, Estimated GFR (Non- 89.3, Glucose Level 253H, Hematocrit 39.70, Hemoglobin 13.5, Lymphocytes # 5.0, Lymphocytes # (Auto ) , Lymphocytes % (Manual) 56H, Lymphocytes (%) (Auto) , Mean Corpuscular Hemoglobin 31.3, Mean Corpuscular Hemoglobin Concent 34.0, Mean Corpuscular Volume 92, Mean Platelet Volume 12.7H, Metamyelocytes % 0, Monocytes # 0.2, Monocytes # (Auto) , Monocytes % (Manual) 3, Monocytes (%) (Auto) , Neutrophils # 3.4, Neutrophils # (Auto) , Neutrophils (%) (Auto) , Phosphorus Level 2.9, Platelet Count 275, Potassium Level 4.3, Red Blood Count 4.32, Red Cell Distribution Width 14.2, Segmented Neutrophils % 38L, Sodium Level 137, White Blood Count 8.99 04/09/16 05:16: Prothromb Time International Ratio 1.1, Prothrombin Time 12.7H 04/10/16 05:20: Prothromb Time International Ratio 1.3, Prothrombin Time 14.9H 04/11/16 05:05: Absolute Band Neutrophils 0.1, Albumin 2.9L, Anion Gap 14.5, Band Neutrophils % 1, Basophils # (Auto) , Basophils # (Manual) 0.0, Basophils % (Manual) 0, Basophils (%) (Auto) , Blood Morphology Comment Normal, Blood Urea Nitrogen 18, Calcium Level 9.6, Carbon Dioxide Level 22, Chloride Level 106, Creatinine 0.77 , Differential Total Cells Counted 100, Eosinophils # 0.9, Eosinophils # (Auto) , Eosinophils % (Manual) 10H, Eosinophils (%) (Auto) , Estimat Glomerular Filtration Rate 87.3, Estimated GFR (Non- 72.1, Glucose Level 234H, Hematocrit 38.90, Hemoglobin 13.2, Lymphocytes # 4.4, Lymphocytes # (Auto ) , Lymphocytes % (Manual) 46, Lymphocytes (%) (Auto) , Mean Corpuscular Hemoglobin 31.1, Mean Corpuscular Hemoglobin Concent 33.9, Mean Corpuscular Volume 92, Mean Platelet Volume 12.8H, Monocytes # 0.5, Monocytes # (Auto) , Monocytes % (Manual) 5, Monocytes (%) (Auto) , Neutrophils # 3.6, Neutrophils # (Auto) , Neutrophils (%) (Auto) , Phosphorus Level 4.0#, Platelet Count 291, Potassium Level 4.5, Red Blood Count 4.24, Red Cell Distribution Width 14.6, Segmented Neutrophils % 38L, Sodium Level 137, White Blood Count 9.59, Magnesium Level 1.9 04/12/16 05:16: Prothromb Time International Ratio 2.4H, Prothrombin Time 26.6H MICRO 04/06 Blood culture Negative to date URINE CULTURE Final Verified 04/10/16-0820 AM Source: URINE / VOIDED URINE Order Location: EMERGENCY Site: U VOID Received : 04/07/16 12:59 Order#: [id number] Urine Culture FINAL 04/10/16 08:19 S Escherichia coli >100,000 cfu/ml Proteus mirabilis 50-100,000 cfu/ml E. coli P. mirab. Antibiotic WILFRIDO INT WILFRIDO INT Ampicillin >=32 R <=2 S Ampicillin/sulbactam 16 I <=2 S Cefazolin 8 S <=4 S Ceftriaxone <=1 S <=1 S Ciprofloxacin <=0.25 S <=0.25 S Gentamicin <=1 S <=1 S Nitrofurantoin <=16 S 128 R Trimethoprim/Sulfa <=20 S <=20 S S=SUSCEPTIBLE I=INTERMEDIATE R=RESISTANT S-DD= SUSCEPTIBLE, DOSE DEPENDENT IMAGING 04/08/16 ECHO: PENDING. Prelim: LVEF 55%. Report still pending at time of discharge. 04/07/16 CT CHEST W INDICATION: Hilar fullness. EXAMINATION: CT chest obtained with IV contrast bolus. FINDINGS: There are no enlarged mediastinal nodes. There is evidence of pulmonary emboli in the right pulmonary artery and lower lobe branches. There is no perihilar mass. There are no enlarged axillary nodes. There is no pericardial fluid but there is a trace of pleural fluid on the right side with no significant left-sided pleural fluid. Lung parenchymal windows demonstrate bibasilar atelectatic changes but no zaid consolidation or pulmonary parenchymal mass. Visualized portions of the upper abdomen are unremarkable. IMPRESSION: Evidence of right-sided pulmonary emboli. There is cardiomegaly. There is bibasilar atelectasis with a trace of pleural fluid on the right side. No overt adenopathy is seen. 04/07/16 CHEST PA/LAT (2 VIEW)* INDICATION: Right hilar fullness. EXAMINATION: Two-view chest dated 04/07/2016. COMPARISON: Previous portable chest from 2015. FINDINGS: There is persistent prominence of the right perihilar region and lymphadenopathy with an adjacent small lung nodule not excluded. CT imaging recommended. The remaining lungs demonstrate minimal left base atelectasis. There are no effusions. Heart is unremarkable. Metallic device overlies the right upper quadrant. There are rounded densities superimposed upon the lower thoracic spine, likely stool in the adjacent colon, less likely lesions in the adjacent lung, but again CT imaging would be recommended. IMPRESSION: 1. Abnormal findings in the right perihilar region and questionably overlying the thoracic spine distally. See above discussion. CT imaging recommended. 04/06/16 PELVIS INDICATION: Weakness EXAMINATION: Pelvis 04/06/2016 COMPARISON: None FINDINGS: Frontal view of the pelvis demonstrates no evidence for fracture or dislocation although examination is limited by patient body habitus. IMPRESSION: 1. No acute abnormality, however, if there is persistent pain or patient cannot bear weight, further imaging recommended because of the given limitations as above. 04/06/16 CHEST 1 VIEW, AP/PA ONLY* INDICATION: Weakness. EXAMINATION: Chest, . Comparison made to 02/03/2013. FINDINGS: There is prominence of the right perihilar region. The heart is mildly prominent. Atelectasis is seen at the left lung base. Remaining lungs demonstrate chronic appearing changes. No pneumothorax is seen. IMPRESSION: 1. Prominence of the right hilum. CT imaging recommended to exclude lymphadenopathy. The remaining changes unremarkable as discussed above. Discharge Disposition Discharged to [facility] detention. Instructions * You were evaluated for urinary tract infection and your urine grew Proteus mirabilis and E coli, two bacteria that are common causes of urinary tract infection. This was treated in hospital with levofloxacin. * You were found to have a blood clot in your lung. This is called a pulmonary embolism. You will need to take blood thinner for a minimum of 6 months. You are current starting warfarin but this requires addition of enoxaparin, an injectable blood thinner, to be given until the warfarin has taken full effect. The effect of warfarin is measured with a blood test called INR and your goal INR is between 2 and 3. The enoxaparin can be stopped once your INR has been between 2 and 3 for two consecutive days. * You should no longer take NSAID medications including ibuprofen, because of a risk of increased bleeding when taking warfarin. * Continue using your incentive spirometry. These deep breathing exercises help in your recovery. * To help in your recovery, you are being discharged to detention at [facility] in [place]. Activity Instructions As tolerated. Appointments Follow-up with your primary care doctor in 3-5 days. Discharge Diet: Carbohydrate controlled Discharge Medications New Medications: Acetaminophen (Acetaminophen) 325 Mg Tablet 650 MG PO Q6H PRN PAIN #0 Ref 0 TAB Bisacodyl (Dulcolax) 10 Mg Supp 10 MG OH DAILY PRN CONSTIPATION #0 Ref 0 SUPP Docusate Sodium (Docusate Sodium) 100 Mg Capsule 100 MG PO BID PRN CONSTIPATION #0 Ref 0 CAP Enoxaparin Sodium (Lovenox) 80 Mg/0.8 Ml Disp.syrin 80 MG SC Q12HR Continue until INR has been between 2-3 for 2 consecutive days. # 6 Ref 0 SYR Insulin Glargine,Hum.rec.anlog (Insulin Lantus) 100 Units/1 Ml Vial 30 UNIT SC HS #0 Ref 0 ML Insulin Lispro (Humalog) 100 Unit/1 Ml Vial 15 UNIT SC TIDWM #0 Ref 0 VIAL Insulin Lispro (Humalog) 100 Unit/1 Ml Vial 0 UNIT SC QIDACHS Give in addition to meal time insulin and give at bedtime if: Glucose 180-200 1 unit Glucose 201-250 2 unit Glucose 251-300 3 unit Glucose 301-350 4 unit Glucose 351-400 5 unit Glucose > 400 Call provider. #0 Ref 0 VIAL Polyethylene Glycol 3350 (Miralax) 17 Gm Powd.pack 17 GM PO DAILY PRN CONSTIPATION #0 Ref 0 PACKET Warfarin (Warfarin) 5 Mg Tablet 5 MG PO DAILY@1700 #30 Ref 0 TAB Continued Medications: Aspirin (Adult Low Dose Aspirin EC) 81 Mg Tablet.dr 81 MG PO DAILY Metoprolol Tartrate (Metoprolol Tartrate) 50 Mg Tablet 50 MG PO BID Ref 0 TAB Simvastatin (Simvastatin) 40 Mg Tablet 40 MG PO HS TAB Tolterodine Tartrate (Tolterodine Tartrate ER) 4 Mg Cap.er.24h 4 MG PO HS Discontinued Medications: Ibuprofen (Ibuprofen) 200 Mg Capsule 800 MG PO NEEDED PRN PAIN Insulin Aspart (Novolog) 100 Unit/1 Ml Insuln.pen 15 UNIT SQ WITH BREAKFAST PEN Insulin Aspart (Novolog) 100 Unit/1 Ml Insuln.pen 18 UNIT SQ WITH LUNCH PEN Insulin Aspart (Novolog) 100 Unit/1 Ml Insuln.pen 20 UNIT SQ WITH SUPPER PEN Insulin Glargine,Hum.rec.anlog (Lantus) 100 Unit/1 Ml Cartridge 28 UNIT SQ HS Follow up New Orders: PROTIME WITH INR - 04/13/16 PROTIME WITH INR - 04/14/16 PROTIME WITH INR - 04/15/16 Discharge Diagnosis See list above. Problems: Copies to: End of Report . GERARDO BRODY MD Apr 12, 2016 16:52
--- NOTE | 2016-05-09 13:29 | OT Therapy Evaluation (E) ---
Discharge Summary Service Date/Time 05/09/16, 13:27 Primary Diagnosis: (1) Hyperglycemia ICD Code: R73.9 (2) Urinary tract infection ICD Code: N39.0 Treatment Diagnosis: (1) Weakness ICD Code: R53.1 Onset Date: 04/03/16 Start of Care Date: Apr 08, 2016 Summary of Discharge Therapy Comments Pt was seen for initial evaluation only. Unable to reassess all goals secondary to early discharge. Pt transitioned to another facility for skilled therapy services. Short Term Goals/Status Will Perform Grooming: With Setup/SBA (NOT MET.) Will Dress Upper Extremity: With Setup/SBA (NOT MET.) Will do Toileting: With Setup/SBA (NOT MET.) Will Perform Functional Transf: With Setup/SBA (NOT MET.) STG #1 Pt will participate in 15 min of ther-ex with 3 or less rest breaks. NOT MET. Half-Way Goals/ Status Will Dress Upper Extremity: Independently (NOT MET.) Will Dress Lower Extremity: With Setup/SBA (NOT MET.) Will do Tub/Shower Transfer: With Setup/SBA (NOT MET.) Will Bathe Self: With Setup/SBA (NOT MET.) Will do Toilet Transfers: Independently (NOT MET.) Will do Toilieting: Independently (NOT MET.) Will Perform Kitchen Mobility: Independently (NOT MET.) Discharge Recommendations: Halfway (TCU/NH) NITZA LANDEROS OT May 09, 2016 13:29
--- NOTE | 2016-05-31 14:57 | Physical Therapy Evaluation(E) ---
Discharge Summary Service Date/Time 05/31/16, 14:54 Primary Diagnosis: (1) Hyperglycemia ICD Code: R73.9 (2) Urinary tract infection ICD Code: N39.0 Treatment Diagnosis: (1) Weakness of both legs ICD Code: R29.898 (2) Urinary tract infection ICD Code: N39.0 Onset Date: 04/06/2016 Start of Service Date: Apr 07, 2016 Summary of Progress Summary Comment The patient fatigued quickly but was cooperative in therapy sessions. She was able to ambulate 45 feet with FWW CGA and required CGA for sit to stand transfers. Patient has impaired activity tolerance at this time and would benefit from additional therapy services to improve her functional mobility. The patient was discharged to a detention facility to continue rehab services. Distance Walked in Feet 45 feet with FWW. Assistive Device: FWW Assist: Min Assist/Contact Guard Gait Description: Decreased [place], Slow Gait Limitations: Fatigue (Reported feeling of weakness. ) Transfer STG and Status Rolling: Supervision or setup Goal Status at Discharge: Goal Not Met Sit-Supine: Contact Guard Assist Goal Status at Discharge: Goal Not Met Sitting Edge of Bed: Supervision or setup Goal Status at Discharge: Goal Not Met Supine-Sit: Contact Guard Assist Goal Status at Discharge: Goal Not Met Sit-Stand from bed: Supervision or setup Goal Status at Discharge: Goal Not Met Stand-Sit: Supervision or setup Goal Status at Discharge: Goal Not Met Ambulation: Contact Guard Assist Goal Status at Discharge: Goal Partially Met Distance Walked: 45 feet. Transfer LTG and Status Rolling: Modified Downs Goal Status at Discharge: Goal Not Met Sit-Supine: Modified Downs Goal Status at Discharge: Goal Not Met Sitting Edge of Bed: Modified Downs Goal Status at Discharge: Goal Not Met Supine-Sit: Modified Downs Goal Status at Discharge: Goal Not Met Sit-Stand from bed: Modified Downs Goal Status at Discharge: Goal Not Met Stand-Sit: Modified Downs Goal Status at Discharge: Goal Not Met Ambulation: Modified Downs Goal Status at Discharge: Goal Not Met Plan of Care Goals and Status STG: Plan-Treatment Functional: Trans. Safe w/ AD Goal Status at Discharge: Goal Partially Met Discharge Recommendations: TCU/Skilled NH Service Recommendations: Continue Service (The patient would benefit from additional therapy services as she was not functioning at her prior level of function. ) JAMIE SWIFT PT May 31, 2016 14:57
== END 2016-04-12 15:08 | DRG 689 ==
LOC: ED 20:10 → UNDOADMOB 23:23 → OBSVTOIN 23:23 → MED/SURG 23:23
PROVIDERS: ADMIT Family Medicine; ATTEND Family Medicine
DX: N39.0 Urinary tract infection, site not specified (principal); I26.99 Other pulmonary embolism without acute cor pulmonale; Z66 Do not resuscitate; E86.0 Dehydration; B37.3 Candidiasis of vulva and vagina; I10 Essential (primary) hypertension; I25.10 Atherosclerotic heart disease of native coronary artery without angina pectoris; E11.65 Type 2 diabetes mellitus with hyperglycemia; G25.0 Essential tremor; Z79.4 Long term (current) use of insulin; Z91.81 History of falling; Z85.3 Personal history of malignant neoplasm of breast
CPT/HCPCS: 36415; 71010; 71020; 71260; 72170; 80053; 80069; 80320; 81003; 81015; 82550; 82553; 83036; 83690; 83735; 83880; 84443; 84484; 85007; 85025; 85027; 85610; 85730; 86140; 87040; 87077; 87088; 87186; 93005; 93010; 93306; 94760; 96360; 96361; 99285

== ENCOUNTER → 2016-07-23 | Outpatient (CLI) | payer MEDICARE, OTHER ==
[~2016-07-23] MED LIST changes: +AC325T PO; +BSC10SU PR; +DOCU100C8 PO; +ENXP80I.8 SC; +INSU100I14 SQ; +INSU100V2 SC; +INSU100V8 SC; +LACT10SO6 PO; -LCT30U PO; +MTP50T PO; +POLY17PO2 PO; +SIMV40TA2 PO; +WRF5T PO
== END ==
LOC: EMS 03:50
DX: R42 Dizziness and giddiness (principal); R55 Syncope and collapse

== ENCOUNTER → 2016-08-24 | Outpatient (REF) | payer MEDICARE, OTHER ==
[2016-08-24 12:35] LABS: ALBUMIN 3.4 g/dL (3.4-5.0); ANION GAP 11.5 MEQ/L (3-15); CALCULATED IONIZED CALCIUM 4.5 mg/dL (3.8-4.6); TOTAL PROTEIN 6.2 g/dL (6.4-8.5)
== END ==
LOC: LAB 12:08
PROVIDERS: ATTEND Family Medicine
DX: I10 Essential (primary) hypertension (principal); I50.9 Heart failure, unspecified
CPT/HCPCS: 80053; 83880

== ENCOUNTER → 2016-08-29 | Outpatient (CLI) | payer MEDICARE, OTHER | LOC: NM 03:37 | PROVIDERS: ATTEND Family Medicine | DX: Z53.20 Procedure and treatment not carried out because of patient's decision for unspecified reasons (principal) ==

== ENCOUNTER → 2016-08-31 | Outpatient (REF) | payer MEDICARE, OTHER ==
[2016-08-31 11:37] LABS: MEAN CORPUSCULAR HGB CONC 34.3 g/dL (31.0-37.0); MEAN CORPUSCULAR VOLUME 93 FL (80-100); MEAN PLATELET VOLUME 12.4 FL (6.0-9.5); PLATELET COUNT 263 10^3uL (150-450); WHITE BLOOD COUNT 10.47 10^3uL (4.0-11.0)
[2016-08-31 11:43] LABS: MEAN CORPUSCULAR HEMOGLOBIN 31.9 PG (26.0-34.0)
[2016-08-31 12:12] LABS: BAND NEUTROPHILS % 0 % (0-6); LYMPHOCYTES # 5.1 #; MONOCYTES # 0.8 #; MONOCYTES % 8 % (3-11); SEGMENTED NEUTROPHILS % 41 % (51-67)
[2016-08-31 12:13] LABS: EOSINOPHILS % 2 % (0-4); RBC MORPH NORMAL (NORMAL); TOTAL CELLS COUNTED 100
== END ==
LOC: LAB 11:03
PROVIDERS: ATTEND Family Medicine
DX: Z51.81 Encounter for therapeutic drug level monitoring (principal); Z79.01 Long term (current) use of anticoagulants; I10 Essential (primary) hypertension; E11.9 Type 2 diabetes mellitus without complications
CPT/HCPCS: 83036; 85007; 85027; 85610